=== PATIENT | female | born 1965 | race Caucasian/White ===

== ENCOUNTER 2019-10-31 06:43 | Day surgery (SDC) | payer MEDICARE, SELFPAY ==
[2019-10-30 09:27] VITALS: BMI 32.3
--- NOTE | 2019-10-31 07:02 | ANES.PREANES ---
Pre-Anesthetic Assessment Pre-Anesthetic Assessment: Height/Weight: Height 1.68 m Weight 90.718 kg Preop Diagnosis: screening Proposed Procedure: Operation Date: 10/31/19 07:30 Proposed Procedures p Colonoscopy(Not Applicable) - Trino Mane MD Was Beta Raul taken within 24 hours: N/A Last Intake: 20:00 Social: Social History: No tobacco Packs per day: 1 Pack years: 30 Exam: Pre-Anes Outpt Exam: alert, oriented x 3, clear to auscultation bilaterally and regular rate & rhythm Airway: Submandibular: WNL Cervical ROM: WNL MP: 1 Dentition: False Pulmonary: Pulmonary: COPD and MONTEJO CV/HEM: CV/HEM: DVT (2017) and HTN : : None reported Hepatic: Hepatic: None reported GI: GI: None reported Metabolic: Metabolic: None reported Musc/skel: Musc/skel: Lower Back Pain and OA/DJD Neuropsych: Neuropsych: Anxiety Anesthetic Plan: ASA status: III Anesthesia: Anesthesia Evaluation and MAC Risk of > 500 ml blood loss (7ml/kg in children): No PFSH Anesthesia PFSH: Social History (Updated 10/30/19 @ 10:08 by Celia Vu RN) Smoking and tobacco status: current every day smoker Alcohol intake: current Alcohol intake frequency: 3 or more drinks per day Substance/Drug Use: current Substance/Drug use frequency: few times a month Substance/Drug use type: Marijuana Data Anesthesia Cardiac Studies: No Data to Display
[2019-10-31 07:04] VITALS: BP 135/89; PULSE 82; RESP 18; TEMP 36.2; O2SAT 98
--- NOTE | 2019-10-31 07:04 | PM.HP ---
Providers/Chief Complaint Primary Care Provider: Mary Carmen Salazar APRN Chief Complaint: screening colonoscopse History of Present Illness Chief complaint ; Screening colonoscopy HPI Amber Ventura is a 53 year old female referred to me for screening by patient's primary care provider Review of Systems Const: Reports: body aches; Denies: fever, chills, change in weight, fatigue or malaise Card: Denies: chest pain, palpitations, lightheadedness or shortness of breath on exertion Resp: Denies: shortness of breath or wheezing GI: Denies: abdominal pain, nausea, vomiting, vomiting blood, diarrhea, constipation, bloating, blood in stool or black tarry stool : Denies: difficulty urinating Musc: Denies: back pain Skin/Breast: Reports: skin tenderness Neuro: Denies: frequent falls Psych: Denies: anxiety or depression Endo: Denies: excessive urination Medications/Allergies Home Medications Medication Instructions Recorded Confirmed Last Taken Type amlodipine 5 mg PO DAILY 10/30/19 10/30/19 10/30/19 History ibuprofen [IBU] 800 mg PO Q6H PRN 10/30/19 10/30/19 10/30/19 History lisinopril 20 mg PO DAILY 10/30/19 10/30/19 10/30/19 History Allergies Allergy/AdvReac Type Severity Reaction Status Date / Time codeine Allergy ALGY-Rash Verified 10/30/19 10:05 PFSH Acute PFSH: Statuses (acute, chronic, etc) shown below reflect problem list status as previously entered and may not be historically accurate Medical History (Updated 10/31/19 @ 07:08 by Trino Mane MD) Encounter for screening colonoscopy (Acute) Social History Smoking and tobacco status: current every day smoker Alcohol intake: current Alcohol intake frequency: 3 or more drinks per day Substance/Drug Use: current Substance/Drug use frequency: few times a month Substance/Drug use type: Marijuana Vitals/I&O/Wt Weight last 48 hrs Weight 200 lb Weight 200 lb Physical Exam Const: COMMON NORMALS: no apparent distress and oriented x3 GENERAL APPEARANCE: cooperative ORIENTATION/CONSCIOUSNESS: Yes awake, Yes oriented to person, Yes oriented to place and Yes oriented to time HENMT: COMMON NORMALS: normocephalic HEAD & SCALP: normocephalic Eye: COMMON NORMALS: PERRL and no scleral icterus PUPIL: Yes PERRL Chest: COMMONS NORMALS: inspection of chest normal Resp: COMMON NORMALS: normal respiratory effort and clear to auscultation bilaterally AUSCULTATION: clear to auscultation bilaterally Cardio: COMMON NORMALS: S1 normal heart sound and S2 normal heart sound; negative for no murmurs HEART SOUNDS: S1 normal and S2 normal GI: COMMON NORMALS: soft to palpation; negative for no hepatosplenomegaly INSPECTION: Yes normal to inspection PALPATION: Yes soft, No firm, No tender, No guarding, No rigid and No no hepatosplenomegaly Neuro: COMMON NORMALS: oriented x3 SENSORIUM/ORIENTATION: Yes oriented to person, Yes oriented to place and Yes oriented to time Psych: COMMON NORMALS: mental status grossly normal A&P Assessment and plan (1) Encounter for screening colonoscopy: Plan of care; After thorough history and physical examination and reviewing the chart, plan to perform screening colonoscopy in the GI lab... All questions have been answered and all concerns have been addressed to patient's satisfaction. Informed consent per chart were,Indications, risks, benefits, and alternatives were all discussed with the patient and did agree to proceed. Verbal and written Instructions were given to the patient for colonoscopy prep Status: Acute Code(s): Z12.11 - Encounter for screening for malignant neoplasm of colon Attestations Medical Necessity Statement*: outpatient Coding Level of Care Code Acute Medical Equipment Repairer for Rani Fwd Exam Problem Focused Diagnoses Encounter for screening colonoscopy Z12.11
[2019-10-31] MEDS: sodium chloride 0.9% 1,000 ML 30 ML (07:24)
[2019-10-31 08:22] VITALS: BP 107/81; PULSE 73; RESP 16; TEMP 36.6; O2SAT 94
--- NOTE | 2019-10-31 08:24 | ANE.PACU ---
 Inpatient post-anesthesia follow up: Airway intact: Yes Vital signs: Temperature 97.8 F Pulse Rate [Apical ] 73 Respiratory Rate 16 Blood Pressure [Le ft Arm] 107/81 Pulse Oximetry 94 Oxygen Delivery Me thod Room Air Oxygen Flow Rate Fraction of Inspir ed Oxygen Hydration adequate: Yes Nausea and vomiting: No Pain level: 2 Mental status: Baseline
[2019-10-31 08:34] VITALS: BP 103/75; PULSE 75; RESP 18; O2SAT 100
== END 2019-10-31 08:53 | disposition home or self-care (01) ==
PROVIDERS: PCP Nurse Practitioner Family; Visit Provider Surgery
PROC: 0DJD8ZZ Inspection of Lower Intestinal Tract, Via Natural or Artificial Opening Endoscopic (ICD-10-PCS; CPT 45378; principal; 2019-10-31 07:30)
DX: Z12.11 Encounter for screening for malignant neoplasm of colon (principal); K57.30 Diverticulosis of large intestine without perforation or abscess without bleeding; F17.210 Nicotine dependence, cigarettes, uncomplicated; Z86.718 Personal history of other venous thrombosis and embolism; I10 Essential (primary) hypertension; F41.9 Anxiety disorder, unspecified
CPT/HCPCS: 45378; G0121; J2704; J7030

== ENCOUNTER 2019-11-21 08:12 | Emergency (ER) | payer MEDICARE, SELFPAY ==
[2019-11-21 08:22] VITALS: BP 163/107; PULSE 80; RESP 16; TEMP 36.4; O2SAT 99; BMI 32.1
--- NOTE | 2019-11-21 08:28 | ED_ITS ---
Entered by Beto Rodriguez, acting as scribe for HPI - General Adult General: Chief complaint: Back Pain/Injury Stated complaint: Fall back pain Time Seen by Provider: 11/21/19 08:13 History of Present Illness: HPI narrative: 54 yo female presents with fall and back pain. Pt states that she fell out of the bathtub on tuesday. Pt states that she has been taking flexuril and ibuprofen. Pt states that she has been using icy hot and it hasn't helped. Pt states that she hasn't had any relief. Pt denies hitting head or LOC. MD complaint: back pain/fall Associated symptoms: Deny chest pain, dyspnea, malaise, nausea, rash or vomiting Review of Systems Const: Denies: fever, chills, body aches, change in appetite, fatigue or malaise ENMT: Denies: throat pain, ear pain, nasal discharge or nasal congestion Card: Denies: chest pain, edema, shortness of breath on exertion or shortness of breath when lying down Resp: Denies: shortness of breath, productive cough or non-productive cough GI: Denies: abdominal pain, nausea, vomiting, vomiting blood, coffee grounds in vomit, diarrhea, constipation, bloating, blood in stool or black tarry stool : Denies: flank pain, difficulty urinating, painful urination, urinary frequency or urinary urgency Musc: Reports: back pain (low back) Skin/Breast: Denies: rash or itching PFSH ED PFSH: Statuses (acute, chronic, etc) shown below reflect problem list status as previously entered and may not be historically accurate Medical History Diverticulosis large intestine w/o perforation or abscess w/bleeding (Acute) Social History Smoking and tobacco status: current every day smoker Alcohol intake: current Alcohol intake frequency: 3 or more drinks per day Physical Exam Const: COMMON NORMALS: no apparent distress GENERAL APPEARANCE: cooperative and comfortable ORIENTATION/CONSCIOUSNESS: Yes awake, Yes oriented to person, Yes oriented to place and Yes oriented to time HENMT: COMMON NORMALS: normocephalic, head/scalp atraumatic, hearing grossly normal bilaterally, external ears normal, EAC's normal, TM's normal bilaterally, nasal mucous membranes and turbinates normal, moist oral mucous membranes and oropharynx normal HEAD & SCALP: normocephalic and atraumatic NOSE: nasal mucous membranes and turbinates normal EXTERNAL EAR: Yes external ears normal EXTERNAL AUDITORY CANAL: EAC's normal TYMPANIC MEMBRANE: TM's normal bilaterally Eye: COMMON NORMALS: PERRL, EOMs intact bilaterally, conjunctivae normal and no scleral icterus CONJUNCTIVA: Yes conjunctivae normal PUPIL: Yes PERRL Neck/C-Spine: COMMON NORMALS: full ROM, no lymphadenopathy, supple and no JVD Lymph: LYMPHATIC: no lymphadenopathy noted and no lymphedema noted Resp: COMMON NORMALS: normal respiratory effort, no retractions, no use of accessory muscles and clear to auscultation bilaterally AUSCULTATION: clear to auscultation bilaterally Cardio: COMMON NORMALS: no JVD, regular rate, regular rhythm and no murmurs RATE: regular rate RHYTHM: regular rhythm GI: COMMON NORMALS: soft to palpation and no hepatosplenomegaly AUSCULTATION: Yes normoactive bowel sounds PALPATION: Yes soft, No tender, No guarding and Yes no hepatosplenomegaly Back/Pelvis: GENERAL BACK: Yes tenderness (low back) THORACIC SPINE/UPPER BACK: Yes pain with ROM Extremity: COMMON NORMALS: normal to inspection, normal capillary refill, no clubbing, cyanosis or edema, no calf tenderness and no pedal edema Neuro: SENSORIUM/ORIENTATION: Yes oriented to person, Yes oriented to place and Yes oriented to time Skin: COMMON NORMALS: no rashes or lesions noted GENERAL SKIN EXAM: no guevara hes or lesions noted Course ED course: musculoskeletal back pain wiht no trauma. TReat conservatively. Vital Signs: Vital signs: Vital Signs Temperature 97.6 F 11/21/19 08:22 Pulse Rate 67 11/21/19 10:55 Respiratory Rate 16 11/21/19 10:55 Blood Pressure 144/97 11/21/19 10:55 Pulse Oximetry 98 11/21/19 10:55 Discharge Plan Discharge Patient Disposition: Home, Self-Care Clinical Impression: Strain of lumbar region Condition: Stable Prescriptions: New diclofenac sodium 75 mg tablet,delayed release (DR/EC) 75 mg PO Q12H PRN (Reason: pain) Qty: 30 RF: 0 cyclobenzaprine 5 mg tablet 10 mg PO TID PRN (Reason: muscle spasm) Qty: 20 RF: 0 Held ibuprofen 200 mg Tablet 1,000 mg PO TID PRN (Reason: Pain) RF: 0 Hold Instructions: Resume on 11/30/19. hold while on diclofenec cyclobenzaprine 5 mg tablet 5 mg PO TID PRN (Reason: Spasms) RF: 0 Hold Instructions: Resume on 11/28/19. hold while on the increased dose of 10mg q 8 hrs as needed No Action lisinopril 20 mg tablet 20 mg PO DAILY RF: 0 amlodipine 5 mg tablet 5 mg PO DAILY RF: 0 Multiple Vitamins Tablet 1 tab PO DAILY PRN (Reason: unknown) RF: 0 Discharge Orders: Discharge Order (Routine); Ordered 11/21/19 Ordered By: Francisco Javier De La Paz Referrals: Mary Carmen Salazar APRN [Primary Care Provider] - Discharge Date/Time: 11/21/19 10:56 Coding Level of Care Code ED Non Cdl Driver for Chg Fwd Exam Problem Focused The documentation recorded by the Michael gould Kialy, accurately reflects the service I personally performed and the decisions made by Ana Cristina palmer Curtis L, DO Nov 21, 2019 08:12
--- NOTE | 2019-11-21 08:39 | XRR_ITS ---
PROCEDURE INFORMATION: Exam: XR Lumbosacral Spine, 2 or 3 Views Exam date and time: 11/21/2019 9:10 AM Age: 54 years old Clinical indication: Injury or trauma; Initial encounter; Blunt trauma (contusions or hematomas); Injury date: 11/21/19; Injury details: Fall, PT can't stand or lay down; Additional info: Trauma with bruising TECHNIQUE: Imaging protocol: XR of the lumbosacral spine, 2 or 3 views. COMPARISON: No relevant prior studies available. FINDINGS: Vertebrae: Severe diffuse degenerative disc disease reflected as severe decrease in disc space height and anterior endplate osteophytosis. No spondylolisthesis No pars defect. No fracture. Multi-level facet hypertrophic changes- Soft tissues: Normal. XR/XR lumbar spine 2-3V* [id number] IMPRESSION: Severe diffuse degenerative disc disease.
[2019-11-21] MEDS: ketorolac 60 mg/2 mL INJ IM (09:26)
[2019-11-21] MEDS: orphenadrine 30 mg/mL Inj 2 mL 60 MG IM (09:26)
[2019-11-21 10:55] VITALS: BP 144/97; PULSE 67; RESP 16; O2SAT 98
== END 2019-11-21 10:56 | disposition home or self-care (01) ==
PROVIDERS: Emergency Provider Family Medicine; PCP Nurse Practitioner Family
DX: S39.012A Strain of muscle, fascia and tendon of lower back, initial encounter (principal); F17.210 Nicotine dependence, cigarettes, uncomplicated; W18.2XXA Fall in (into) shower or empty bathtub, initial encounter
CPT/HCPCS: 72100; 96372; 99281; 99283; J1885; J2360

== ENCOUNTER 2020-02-07 10:51 | Outpatient (CLI) | payer MEDICARE, SELFPAY ==
--- NOTE | 2020-02-07 11:05 | XR_ITS ---
WS: [id number] HIPS BILATERAL TECHNIQUE: 5 views bilateral hips Including pelvis CLINICAL INFORMATION: OSTEOARTHRITIS OF HIPS COMPARISON: None. FINDINGS: Advanced degenerative arthritis right hip with [id number]-gg-onta articulation and flattening of the femora l head. Sclerosis in the femoral head consistent with avascular necrosis. Normal left hip. XR/XR hip BI 3-4V wo/[place] [id number] IMPRESSION: Advanced osteoarthritis right hip with [id number] articulation and flattening of the femoral head consistent with avascular necrosis and advanced degenerati ve changes
== END 2020-02-07 10:52 | disposition home or self-care (01) ==
LOC: RADWPI 10:57
PROVIDERS: PCP Nurse Practitioner Family; Visit Provider Nurse Practitioner Family
DX: M16.11 Unilateral primary osteoarthritis, right hip (principal)
CPT/HCPCS: 73522

== ENCOUNTER → 2020-02-19 09:03 | Outpatient (BNVA) | payer MEDICARE, SELFPAY | PROVIDERS: PCP Nurse Practitioner Family; Referring Provider Nurse Practitioner Family; Visit Provider Specialist | DX: M25.551 Pain in right hip; M16.11 Unilateral primary osteoarthritis, right hip | CPT/HCPCS: 73502 ==

== ENCOUNTER 2020-03-11 10:24 | Observation (INO) | payer MEDICARE, SELFPAY ==
[2020-03-06 12:25] VITALS: BMI 31.9
[2020-03-06 14:20] LABS: Add Urine Microscopic? NO
[2020-03-06 14:29] LABS: Urine Appearance Clear (CLEAR); Urine Color Yellow (Yellow); pH Urine 5 (5-7)
[2020-03-06 14:30] LABS: Bilirubin Urine Neg (NEGATIVE); Blood Urine Neg (Negative); Glucose Urine UA Norm (Normal); Ketones Urine 2+ (Negative); Leukocyte Esterase Urine Negative (Negative); Nitrate Urine Negative (Negative); Protein Urine Neg (Negative); Specific Gravity, Urine 1.015 (1.005-1.030); Urobilinogen Urine Norm (Negative)
[2020-03-06 14:33] LABS: Basophils % 0.6 %; Eosinophils # 0.1 10^3/uL (0.0-0.8); Eosinophils % 1.3 %; Hematocrit 43.6 % (37.0-47.0); Hemoglobin 14.6 g/dL (11.5-15.3); Lymphocytes # 1.4 10^3/uL (0.8-4.8); Lymphocytes % 29.9 %; Mean Corpuscular HGB Conc 33.5 g/dL (30.0-36.0); Mean Corpuscular Hemoglobin 32.4 pg (28.0-34.0); Mean Corpuscular Volume 96.7 fL (81-99); Mean Platelet Volume 9.4 fL (7.4-10.4); Monocytes # 0.6 10^3/uL (0.2-0.9); Monocytes % 12.1 %; Neutrophils # 2.7 10^3/uL (1.8-7.7); Neutrophils % 56.1 %; Nucleated Red Blood Cells % 0 %; Platelet Count 193 10^3/cmm (130-400); Red Blood Count 4.51 10^6/uL (4.1-5.3); White Blood Count 4.8 10^3/uL (4.0-10.0)
--- NOTE | 2020-03-06 14:37 | XR_ITS ---
WS: [id number] CHEST 2 VIEWS HISTORY: RIGHT TOTAL HIP COMPARISON: None available. Lungs: Mild pulmonary hyperinflation. Very subtle linear atelectasis at the LEFT costophrenic angle. No pneumonia. Mild flattening of the diaphragms. Cardiac size: Normal. Mediastinum/Aorta: Mild atherosclerosis aorta. Bones: Mild bilateral AC joint arthritis. Mild thoracic spondylosis. XR/XR chest 2V* [id number] IMPRESSION: Mild emphysema with no pneumonia.
--- NOTE | 2020-03-06 14:37 | ECG_ITS ---
Measurements Intervals [place] Rate: 83 P: 27 VT: 151 QRS: 24 QRSD: 95 T: 43 QT: 349 QTc: 411 SINUS RHYTHM No previous ECG available for comparison Electronically Signed On 03-07-2020 13:01:10 CDT by Kory Bustos M.D. [email or web address]
[2020-03-06 14:56] LABS: INR 0.95 (0.8-1.2)
[2020-03-06 14:57] LABS: Partial Thromboplastin Time 24.7 SECONDS (23.9-36.7)
[2020-03-06 15:03] LABS: Alanine Aminotransferase 16 U/L (0-33); Albumin Level 4.3 g/dL (3.5-5.2); Alkaline Phosphatase 124 IU/L (35-105); Anion Gap 20.5 (5-19); Aspartate Amino Transferase 20 U/L (0-32); Blood Urea Nitrogen 11 mg/dL (6-20); Carbon Dioxide 22 mmol/L (22-29); Chloride 100 mmol/L (98-107); Glomerular Filtration Rate 127.6 mL/min (90-130); Glucose 95 mg/dL (65-115); Osmolality Calculated 284 mOsm/kg (285-295); Potassium 3.5 mmol/L (3.5-5.1); Sodium 139 mmol/L (136-145); Total Bilirubin 0.6 mg/dL (0.15-1.2); Total Protein 7.3 g/dL (6.6-8.7)
--- NOTE | 2020-03-06 17:02 | ANES.PREANE2 ---
Pre-Anesthetic Assessment Pre-Anesthetic Assessment: Height/Weight: Height 1.7 m Weight 92.533 kg Preop Diagnosis: screening Proposed Procedure: Operation Date: 03/11/20 07:00 Proposed Procedures p Right [place] arthor[place]. [id number] Primary osteoarthritis M16.11(Right) - Jocelin Wood MD Social: Social History: Alcohol and Tobacco Exam: Pre-Anes Outpt Exam: alert, oriented x 3, clear to auscultation bilaterally and regular rate & rhythm Airway: Submandibular: WNL Cervical ROM: WNL MP: 2 Dentition: False (upper and lower) History/ROS: No significant history except as noted Pulmonary: Pulmonary: COPD and MONTEJO CV/HEM: CV/HEM: HTN : : None reported Hepatic: Hepatic: None reported GI: GI: GERD (occ) Metabolic: Metabolic: None reported Musc/skel: Musc/skel: OA/DJD Neuropsych: Neuropsych: None reported Anesthetic Plan: ASA status: 3 Anesthesia: Anesthesia Evaluation and General Risk of > 500 ml blood loss (7ml/kg in children): Yes, adequate IV access and fluids planned PFSH Anesthesia PFSH: Medical History (Updated 02/19/20 @ 14:46 by Jocelin Wood MD) Avascular necrosis of bone Diverticulosis large intestine w/o perforation or abscess w/bleeding HTN (hypertension) Hx of deep venous thrombosis Social History Smoking and tobacco status: current every day smoker Alcohol intake: current Alcohol intake frequency: 3 or more drinks per day Data Anesthesia CBC & Chem 7: 03/06/20 14:00 03/06/20 14:00 Other Labs: Laboratory Results - last 48 hr 03/06/20 03/06/20 03/06/20 14:00 14:00 14:00 WBC 4.8 RBC 4.51 Hgb 14.6 Hct 43.6 MCV 96.7 MCH 32.4 MCHC 33.5 RDW 13.0 Plt Count 193 MPV 9.4 Neut % (Auto) 56.1 Lymph % (Auto) 29.9 [place] % (Auto) 12.1 Eos % (Auto) 1.3 Baso % (Auto) 0.6 Neut # (Auto) 2.7 Lymph # (Auto) 1.4 [place] # (Auto) 0.6 Eos # (Auto) 0.1 Baso # (Auto) 0.0 Nucleated RBC % (auto) 0 Nucleated RBCs # 0.0 PT 12.90 INR 0.95 APTT 24.7 Sodium Potassium Chloride Carbon Dioxide Anion Gap BUN Creatinine GFR Calculation Glucose Calculated Osmolality Calcium Total Bilirubin AST ALT Alkaline Phosphatase Total Protein Albumin Globulin Urine Color Yellow Urine Appearance Clear Urine pH 5 Ur Specific [place] 1.015 Urine Protein Neg Urine Glucose (UA) Norm Urine Ketones 2+ H Urine Blood Neg Urine Nitrate Negative Urine Bilirubin Neg Urine Urobilinogen Norm Ur Leukocyte Esterase Negative 03/06/20 14:00 WBC RBC Hgb Hct MCV MCH MCHC RDW Plt Count MPV Neut % (Auto) Lymph % (Auto) [place] % (Auto) Eos % (Auto) Baso % (Auto) Neut # (Auto) Lymph # (Auto) [place] # (Auto) Eos # (Auto) Baso # (Auto) Nucleated RBC % (auto) Nucleated RBCs # PT INR APTT Sodium 139 Potassium 3.5 Chloride 100 Carbon Dioxide 22 Anion Gap 20.5 H BUN 11 Creatinine 0.5 GFR Calculation 127.6 Glucose 95 Calculated Osmolality 284 L Calcium 10.0 Total Bilirubin 0.6 AST 20 ALT 16 Alkaline Phosphatase 124 H Total Protein 7.3 Albumin 4.3 Globulin 3.0 Urine Color Urine Appearance Urine pH Ur Specific [place] Urine Protein Urine Glucose (UA) Urine Ketones Urine Blood Urine Nitrate Urine Bilirubin Urine Urobilinogen Ur Leukocyte Esterase Micro: Microbiology 03/06/20 14:00 MRSA Culture - Final Nose Cardiac Studies: No Data to Display
[2020-03-11] VITALS (16 sets, daily range): BP systolic 111–147; BP diastolic 72–96; PULSE 76–100; RESP 14–20; TEMP 36.1–37.2; O2SAT 94–98
[2020-03-11] MEDS: sodium chloride 0.9% 1,000 ML 30 ML IV (06:34)
--- NOTE | 2020-03-11 06:43 | P.ANESUD_ITS ---
Pre-Anesthetic Update Pre-Anesthetic Assessment: Date of Surgery/Procedure: 03/11/20 Preop Tiffanie gnosis: screening Proposed Procedure: Operation Date: 03/11/20 07:00 Proposed Procedures p Right Total hip arthorplasty. [id number] Primary osteoarthritis M16.11(Right) - Jocelin Wood MD Any changes to Pre-Anesthetic Assessment?: No Last Intake: Intake Last Liquid Date 03/11/20 Last Liquid Time 05:00 Last Solid Date 03/10/20 Last Solid Time 19:00 Vitals: Temperature 97 F L 03/11/20 06:19 Pulse Rate 97 03/11/20 06:19 Respiratory Rate 16 03/11/20 06:19 Blood Pressure 142/96 03/11/20 06:19 Blood Pressure Anuja n 111 03/11/20 06:19 Pulse Oximetry 97 03/11/20 06:19 Oxygen Delivery Me thod 03/11/20 06:08 Exam: Pre-Anes Outpt Exam: alert, oriented x 3, clear to auscultation bilaterally and regular rate & rhythm Cardiac Studies: No Data to Display
--- NOTE | 2020-03-11 07:05 | W.PM.OPSUD ---
Surgery/Procedure H&P Update DATE OF PROCEDURE: March 11, 2020 DATE H&P PERFORMED: 02/19/20 H&P UPDATE INFORMATION: I have reviewed H&P completed within last 30 days, I have examined patient prior to procedure and H[place] [facility] date indicated PREOP DIAGNOSIS: Right Hip Degenerative Arthritis PLANNED PROCEDURE: Operation Date: 03/11/20 07:00 Proposed Procedures p Right Total hip arthorplasty. [id number] Primary osteoarthritis M16.11(Right) - Jocelin Wood MD
[2020-03-11] MEDS: vancomycin 1,000 MG SDV 1000 MG XX (08:47)
[2020-03-11] MEDS: ceFAZolin 1,000 mg SDV 1000 MG IRRIGATION (08:47)
--- NOTE | 2020-03-11 10:04 | P.OP_ITS ---
Operative Report Date of procedure: March 11, 2020 Pre-op Diagnosis: Right hip osteoarthritis Post-op diagnosis: same Post-op Findings: Multiple osteophytes and significant head deformity Procedure Done: Right total hip arthroplasty utilizing the following components: The [employer] Accolade II total hip system with a Trident Tritanium acetabulum. Implants: Trident II Tritanium solid back acetabular shell size 54 mm by E alpha code with an MDM cementless liner inner diameter 42 mm by E alpha code. A size 7 Accolade II femoral stem with a 127 degree neck angle with a size 28 mm outer diameter by +4 mm femoral offset, ceramic V40 and an MDM insert size 28 mm inner diameter by size 42E Specimens removed/disposition: Femoral head, disposed of Pathology: none sent Surgeon: Jocelin Wood Retail Loan Originator: [facility] OR technicians Anesthesia: General (Intubated, ASA 3) Estimated blood loss (mL): 600 IV fluids (mL): 1,500 Urine output (mL): 200 Complications: None Findings: Postimplantation, the hip was stable at 90 degrees of flexion with 60 degrees of internal rotation and 20 degrees of adduction. It was also stable to toe hang. Leg lengths appear to be restored. Condition: stable Disposition: PACU (Then to floor.) Brief History: This 54-year-old woman presented with complaints of severe right hip pain interfering with her activities of daily living. At the time of her surgery, she was also having issues in her left lower extremity likely due to significant problems with gait. She has had pain for 3 years but it has been worsening recently. Procedure: Patient was brought to the operating theater. He was transferred to the operating room table and subsequently administered a general anesthetic intubated. Following administration of adequate anesthesia, the patient was placed in full lateral position and held in position with a pegboard. Also, the patient had minimal movement in her right lower extremity preoperatively. The patient's right lower extremity was then prepped and draped in usual fashion utilizing DuraPrep. It was draped free. Following prepping and draping a surgical pause was performed. At the time of surgical pause, we identified the site and side of surgery. We also identified the patient and preoperative surgical markings. Confirmation was made of equipment availability. Additionally, the patient's preoperative IV antibiotic, Ancef 2 g, as well as TXA, was confirmed as being given in a timely fashion and being the appropriate. Following the surgical pause, an incision was made centering over the patient's greater trochanter continuing proximally and distally as necessary to allow access to the hip joint. Dissection continued through skin and soft tissues using a scalpel, and hemostasis was obtained using electrocautery. The tensor fascia colleen was identified and incised longitudinally. Sciatic nerve was identified and protected throughout the surgical procedure. A Charnley U retractor was placed after the tensor fascia colleen had been incised longitudinally, and the sciatic nerve had been identified. The hip was internally rotated, and the piriformis muscle was identified and tagged. Piriformis muscle along with the remaining short external rotators were then incised from the posterior aspect of the hip joint. These were retracted posteriorly. The capsule was entered in a T-type fashion with the edges being tagged. There were noted to be significant osteophytes circumferentially about the acetabulum. This precluded initial dislocation of the hip. These were removed with an osteotome. Following removal, the hip was dislocated Following hip dislocation, a femoral neck osteotomy was accomplished in the appropriate position. Actually, neck resection was noted to be quite low in spite of the patient having a relatively long femoral neck. This was secondary to the fact that the femoral head was severely malformed with large osteophytes along the neck as well. Resection was accomplished as high as possible secondary to the osteophytes. We then evaluated the acetabulum. The femur was retracted anteriorly. Soft tissues were retracted and the labrum was removed. We then began reaming. As noted, there were significant osteophytes, and these were removed as they were better defined. Reaming was accomplished sequentially. We reamed to a size 53 to allow for a size 54 acetabular shell. The acetabulum was impacted into position. Screw holes were filled in the cup as well as the dome hole with the appropriate metal plugs. Also, we confirmed that the acetabular insert was completely seated prior to addressing the femur. After the acetabulum was in appropriate position, we placed the MDM liner without difficulty. There were osteophytes which were better defined once the acetabulum was impacted both anteriorly and posteriorly which were removed as well. The cup was noted to seat nicely and had good fixation upon impact. Attention was directed to the proximal femur. The proximal femur was lifted out of the wound. A canal finder was passed after the box chisel. The reamer was used to lateralize. We then began broaching. We broached sequentially and had excellent fit and fill with the size 7 Accolade II 127 degree neck angle stem. A trial reduction was accomplished with a +0 mm femoral head inside the appropriate MDM insert. We then performed trial reduction with a +4 mm femoral head. The patient had better stability with the +4 mm femoral head and it was not felt that we had increased her leg length. With this in place, we had the above stabilities, and at that time, we felt that we had restored leg lengths. We also felt that we had excellent stability noted above. Therefore, trial components were removed after the hip was dislocated. The size and Accolade II 127 degree neck angle hip stem was impacted into position without difficulty and onto this was placed a 4 mm offset femoral head with the appropriate MDM liner. The hip was then reduced without difficulty. With this construct, we had the above-noted stability. The stem was noted to seat nicely prior to placement of the femoral head. The wound was copiously irrigated with 20 mL of Betadine and 500 mL of normal saline mixed together. Subsequently, we suctioned this out and irrigated the wound copiously with lactated Ringer's. Following reduction of the prosthesis once again, we confirmed the stability of the hip. Leg lengths were also felt to be satisfactory. Being satisfied with the prosthesis, attention was directed to closure. Closure was accomplished with 0 Vicryl in the capsular tissues. Piriformis was reattached with 0 Vicryl as well. Tensor fascia colleen was closed with 0 Vicryl in an interrupted fashion. The subcutaneous tissues were closed the combination of 0 Vicryl and 2-0 Monocryl. Vancomycin powder and a Gelfoam thrombin mixture was placed into the wound as well. The skin was closed with a running 3-0 Monocryl followed by Exofin and Steri-Strips. This was covered with Telfa and Tegaderm. The patient was placed in an abduction pillow. She was returned the Recovery Room in a satisfactory condition and will be discharged to the floor for postoperative rehabilitation and pain management. There were no compli cations.
--- NOTE | 2020-03-11 10:05 | XR_ITS ---
WS: [id number] PELVIS TECHNIQUE: 1 view(s) of the pelvis CLINICAL INFORMATION: Status post right total hip arthroplasty COMPARISON: None. FINDINGS: Right LEVON appears in good position. Postoperative soft tissue edema. Moderate to advanced degenerativ e arthritis left hip joint space narrowing. IMPRESSION: Satisfactory early postoperative changes right LEVON.
[2020-03-11] MEDS: chlorhexidine gluconate 0.12% Btl 473 mL 30 ML MUCOUS MEM ×3 (13:09→21:57)
[2020-03-11] MEDS: TRAMadol 50 mg Tablet PO (13:41)
[2020-03-11] MEDS: sodium chloride 0.9% 1,000 ML 100 ML IV ×2 (14:29→21:57)
[2020-03-11] MEDS: sennosides-docusate Tablet 2 TAB PO (16:44)
[2020-03-11] MEDS: acetaminophen 500 mg Tablet 1000 MG PO (16:45)
[2020-03-11] MEDS: CELEcoxib 200 mg Capsule PO (16:45)
[2020-03-11] MEDS: iron polysaccharide complex 150 mg Capsule PO (16:45)
[2020-03-11] MEDS: calcium carbonate 500 mg Chew Tablet 1000 MG PO (16:45)
--- NOTE | 2020-03-11 18:06 | NUR.SHIFT ---
SHIFT SUMMARY PATIENT HAS DONE WELL SINCE ARRIVAL. VITALS GOOD. GOOD NEUROVASCULAR CHECKS. BILATERAL TEDS AND FOOT PUMPS IN PLACE. PAIN WELL CONTROLLED. DRESSING C/D/I. 1000ML OF URINE OUTPUT. DID WELL WITH PHYSICAL THERAPY.
[2020-03-11] MEDS: TRAMadol 50 mg Tablet 100 MG PO (21:59)
[2020-03-12] VITALS: BP 123/73; PULSE 84; RESP 20; TEMP 37; O2SAT 94
[2020-03-12] MEDS: acetaminophen 500 mg Tablet 1000 MG PO ×2 (02:51→10:18)
[2020-03-12 04:00] VITALS: BP 132/85; PULSE 89; RESP 20; TEMP 36.8; O2SAT 95
[2020-03-12] MEDS: CELEcoxib 200 mg Capsule PO (06:30)
[2020-03-12 06:36] LABS: Basophils % 0.3 %; Hematocrit 35.5 % (37.0-47.0); Hemoglobin 11.8 g/dL (11.5-15.3); Lymphocytes # 1.3 10^3/uL (0.8-4.8); Lymphocytes % 12.3 %; Mean Corpuscular HGB Conc 33.2 g/dL (30.0-36.0); Mean Corpuscular Hemoglobin 32.6 pg (28.0-34.0); Mean Corpuscular Volume 98.1 fL (81-99); Mean Platelet Volume 9.5 fL (7.4-10.4); Monocytes # 0.8 10^3/uL (0.2-0.9); Neutrophils # 8.3 10^3/uL (1.8-7.7); Neutrophils % 78.9 %; Nucleated Red Blood Cells % 0 %; Platelet Count 183 10^3/cmm (130-400); Red Blood Count 3.62 10^6/uL (4.1-5.3); Red Cell Distribution Width 13.2 % (12.1-15.1); White Blood Count 10.5 10^3/uL (4.0-10.0)
[2020-03-12 06:57] LABS: Anion Gap 15.3 (5-19); Blood Urea Nitrogen 8 mg/dL (6-20); Calcium 8.3 mg/dL (8.5-10.5); Carbon Dioxide 21 mmol/L (22-29); Chloride 109 mmol/L (98-107); Glomerular Filtration Rate 165.1 mL/min (90-130); Glucose 116 mg/dL (65-115); Osmolality Calculated 291 mOsm/kg (285-295); Potassium 3.3 mmol/L (3.5-5.1); Sodium 142 mmol/L (136-145)
[2020-03-12 07:20] VITALS: BP 137/80; PULSE 80; RESP 18; TEMP 37.3; O2SAT 95
[2020-03-12] MEDS: cholecalciferol (vitamin D3) 1,000 unit Tablet 1000 UNIT PO (07:31)
[2020-03-12] MEDS: aspirin 325 mg EC Tablet PO (07:31)
[2020-03-12] MEDS: calcium carbonate 500 mg Chew Tablet 1000 MG PO (07:31)
[2020-03-12] MEDS: iron polysaccharide complex 150 mg Capsule PO (07:32)
[2020-03-12] MEDS: sennosides-docusate Tablet 2 TAB PO (07:32)
[2020-03-12] MEDS: lisinopril 20 mg Tablet PO (07:32)
[2020-03-12] MEDS: amlodipine 5 mg Tablet PO (07:32)
[2020-03-12] MEDS: multivitamin therapeutic Tablet 1 TAB PO (07:32)
[2020-03-12] MEDS: chlorhexidine gluconate 0.12% Btl 473 mL 30 ML MUCOUS MEM (07:33)
[2020-03-12] MEDS: TRAMadol 50 mg Tablet PO ×2 (07:33→15:14)
--- NOTE | 2020-03-12 09:35 | P.PN_ITS ---
Vitals/I&O/Wt Last Vital Signs Temp 99.1 F 03/12/20 07:20 Pulse 80 03/12/20 07:20 Resp 18 03/12/20 07:20 BP 137/80 03/12/20 07:20 Pulse Ox 95 03/12/20 07:20 03/11/20 03/12/20 03/12/20 22:59 06:59 14:59 Intake Total 290 / 2350 240 / 2590 240 / 240 Output Total 1000 / 1999 100 / 2100 Balance -710 / 350 140 / 490 240 / 240 Physical Exam Urinary Catheter Management^: F: Cath Placed During This Visit: yes, but has since been removed by the nurse Reason for Continuing Indwelling Catheter: Not indwelling catheter Urinary Catheter Date of Insertion: 03/11/20 Urinary Catheter Time of Insertion: 07:35 Date Urinary Catheter Removed: 03/12/20 Time Urinary Catheter Discontinued: 06:00 Data : 03/12/20 06:10 03/12/20 06:10 A&P Assessment and plan (1) History of total right hip arthroplasty: Status: Acute (2) Primary localized osteoarthritis of right hip: Status: Acute Coding Level of Care Code Acute Waste Transportation Technician for Rani Wells Diagnoses History of total right hip arthroplasty Z96.641 Primary localized osteoarthritis of right hip M16.11
--- NOTE | 2020-03-12 09:49 | PC.CHAP ---
Pastoral Care Encounter/Spiritual Assessment Type of Contact [] Declined rn liaison visit [] Patient/Family/Request visit [] Outpatient visit [] Follow-up visit [] Physician referral [] Code/Alert [x] Routine visit [] Staff referral [] Actively dying [] Patient sleeping [] Family support [] [] Out of room [] Palliative care [] [] Receiving care in room [] Pre-surgical visit [] Trauma [] Long length of stay [] ICU visit [] Other: Relational/Emotional Strength [] Patient feels connected with others/family/visitors/staff [] Distress [] Loneliness/isolation [] Abandonment Spirituality of Patient [] Person of Meghan [] Attends Taoism of their Meghan [] Believes in Prayer [] Reads Bible or Advent materials [] There are Spiritual issues to be addressed Caisson Worker Interventions [x] Prayer [] Active listening [] Non-anxious presence [] Spiritual/emotional support [] Crisis/trauma care [] Spiritual counseling [] Bereavement support [] Provided bereavement packet [] Provided Bible/devotional materials [] Provided toy/stuffed animal, coloring book to patient or family member [] Provided Communion [] Anointing/[place] [] Salvation [x] Completed spiritual assessment [] Other: Impact on Illness or Injury [] Angry [] Fearful [] Anxious [] Often cries [] Exhaustion [] Unable to work [] Unable to attend mormon [] Unable to walk/stand [] Unable to read [] Unable to drive [] Unable to eat/drink [] Unable to sleep [] Unable to be with family [] Patient intubated [] Other: Summary Patient doing great. setting up in chair- healing process moving along very well. Time spent with patient 15 min
[2020-03-12] MEDS: famotidine 20 mg/2 mL INJ IVP (11:43)
[2020-03-12 12:00] VITALS: BP 115/74; PULSE 86; RESP 18; TEMP 36.7; O2SAT 96
[2020-03-12 13:19] VITALS: BP 115/74; PULSE 86; RESP 18; TEMP 36.7; O2SAT 96
--- NOTE | 2020-03-12 16:12 | P.DS_ITS ---
Discharge Providers Date of Admission: 03/11/20 10:24 Date of Discharge: March 12, 2020 Attending Provider at Admission: Jocelin Wood MD Attending Provider at Discharge: Jocelin Wood MD Primary Care Provider: ELAINE Villanueva Diagnoses at Discharge Discharge Diagnosis (1) History of total right hip arthroplasty: Status: Acute (2) Primary localized osteoarthritis of right hip: Status: Resolved Reason for Visit Reason for Visit: Reason For Visit: Right Total hip arthorplasty. 17653 Hospital Course Hospital Course: The patient was admitted on March 11, 2020 for same day surgery for the following procedure: Right total hip arthroplasty utilizing the following components: The [employer]ense Accolade II total hip system with a Trident Tritanium acetabulum. Implants: Trident II Tritanium solid back acetabular shell size 54 mm by E alpha code with an MDM cementless liner inner diameter 42 mm by E alpha code. A size 7 Accolade II femoral stem with a 127 degree neck angle with a size 28 mm outer diameter by +4 mm femoral offset, ceramic V40 and an MDM insert size 28 mm inner diameter by size 42E Discharge Summary: Patient was brought into the hospital as an inpatient observation overnight following same-day surgery for the above procedure. She did well that afternoon and was able to get up with physical therapy. On the day following surgery, the patient was doing well. She was felt to be independent and understood to her hip precautions. She noted that her hip felt better and more functional than it did prior to her surgical intervention. She was comfortable to be discharged home. She will arrange for either outpatient physical therapy or home therapy. I recommended that she consider home therapy initially. Physical Exam Const: COMMON NORMALS: no acute distress, patient oriented x3 and alert GENERAL APPEARANCE: cooperative and comfortable ORIENTATION/CONSCIOUSNESS: Yes awake HENMT: COMMON NORMALS: normocephalic and atraumatic HEAD & SCALP: normocephalic and atraumatic Eye: GENERAL EYE: appearance normal, both eyes and all related structures Chest: COMMONS NORMALS: normal inspection of the chest Resp: COMMON NORMALS: normal respiratory effort EFFORT & INSPECTION: Yes able to speak in complete sentences and Yes symmetric chest movement Extremity: RIGHT LOWER EXTREMITY: Yes hip joint (Dressing is dry and intact. There is no evidence of infection. ) Right hip: Yes inspection (There is no significant swelling about the hip.), Yes palpation (There is no tenderness to palpation.), Yes ROM (Not tested.) and Yes neurovascular exam (Intact with no evidence of DVT.) Neuro: COMMON NORMALS: patient oriented x3 SENSORIUM/ORIENTATION: Yes alert Psych: COMMON NORMALS: mental status grossly normal APPEARANCE: Yes grossly normal ATTITUDE: Yes calm and Yes engaged ATTENTION/CONCENTRATION: Yes attention grossly intact Skin: COMMON NORMALS: no rashes or lesions noted GENERAL SKIN EXAM: no rashes or lesions noted Urinary Catheter Management^: F: Cath Placed During This Visit: yes, but has since been removed by the nurse Reason for Continuing Indwelling Catheter: Not indwelling catheter Urinary Catheter Date of Insertion: 03/11/20 Urinary Catheter Time of Insertion: 07:35 Date Urinary Catheter Removed: 03/12/20 Time Urinary Catheter Discontinued: 06:00 Discharge Data Data Completed and Pending: Completed Studies During Hospitalization Category Date Time Status XR chest 2V* 7104 6 Routine Exams 03/06/20 14:37 Completed XR pelvis 1-2V* 7 2170 Routine Exams 03/11/20 10:05 Completed Labs from last 24 hours 03/12/20 03/12/20 06:10 06:10 WBC 10.5 H RBC 3.62 L Hgb 11.8 Hct 35.5 L MCV 98.1 MCH 32.6 MCHC 33.2 RDW 13.2 Plt Count 183 MPV 9.5 Neut % (Auto) 78.9 Lymph % (Auto) 12.3 Tompkins % (Auto) 8.0 Eos % (Auto) 0.0 Baso % (Auto) 0.3 Neut # (Auto) 8.3 H Lymph # (Auto) 1.3 Tompkins # (Auto) 0.8 Eos # (Auto) 0.0 Baso # (Auto) 0.0 Nucleated RBC % (a uto) 0 Nucleated RBCs # 0.0 Sodium 142 Potassium 3.3 L Chloride 109 H Carbon Dioxide 21 L Anion Gap 15.3 BUN 8 Creatinine 0.4 L GFR Calculation 165.1 H Glucose 116 H Calculated Osmolal ity 291 Calcium 8.3 L Procedures Performed: Right total hip arthroplasty utilizing the following components: The Local[employer]ense Accolade II total hip system with a Trident Tritanium acetabulum. Implants: Trident II Tritanium solid back acetabular shell size 54 mm by E alpha code with an MDM cementless liner inner diameter 42 mm by E alpha code. A size 7 Accolade II femoral stem with a 127 degree neck angle with a size 28 mm outer diameter by +4 mm femoral offset, ceramic V40 and an MDM insert size 28 mm inner diameter by size 42E Vitals: Last Vital Signs Temp 98.1 F 03/12/20 13:19 Pulse 86 03/12/20 13:19 Resp 18 03/12/20 13:19 BP 115/74 03/12/20 13:19 Pulse Ox 96 03/12/20 13:19 Discharge Plan Discharge Patient Disposition: Home Health Service Condition: Stable Prescriptions: New aspirin 325 mg Tablet,Delayed Release (Dr/Ec) 325 mg PO DAILY 30 Days Qty: 30 RF: 0 Continued chlorhexidine gluconate 0.12 % mouthwash 15 ml BUCCAL QID Qty: 30 RF: 0 lisinopril 20 mg tablet 20 mg PO DAILY RF: 0 amlodipine 5 mg tablet 5 mg PO DAILY RF: 0 multivitamin [Multiple Vitamins] Tablet 1 tab PO DAILY RF: 0 diclofenac sodium 75 mg tablet,delayed release (DR/EC) 75 mg PO Q12H PRN (Reason: pain) Qty: 30 RF: 0 cyclobenzaprine 5 mg tablet 10 mg PO TID PRN (Reason: muscle spasm) Qty: 20 RF: 0 Changed tramadol 50 mg tablet 50 mg PO Q6H PRN (Reason: Pain) Qty: 30 RF: 0 Held aspirin [Adult Low Dose Aspirin] 81 mg tablet,delayed release (DR/EC) 81 mg PO DAILY RF: 0 Hold Instructions: Resume on 04/02/20. Resume when off full strength aspirin Discontinued mupirocin 2 % ointment 1 applic TOPICAL BID Qty: 22 RF: 0 ibuprofen 200 mg Tablet 1,000 mg PO TID PRN (Reason: Pain) RF: 0 Hold Instructions: Resume on 11/30/19. hold while on diclofenec Discharge Orders: Discharge Order (Routine); Ordered 03/11/20 Ordered By: Jocelin Wood Other Ambulatory Orders: DME: Walker (Order) Location: None Selected Ordered By: Jocelin Wood Referrals: Jocelin Wood MD [Physician] - 03/27/20 8:45 am Discharge Diet: Advance as tolerated Discharge Activity: Limit activity as instructed, Use walker/crutches as instructed and As per PT/OT instructions Patient Instructions: Aspirin (By mouth), Tramadol (By mouth), Total Hip Replacement (DC) Activity Restrictions/Additional Instructions: Posterior Hip Precautions. Home PT to guide progression of activity. 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
== END 2020-03-12 15:31 | disposition home health service (06) ==
LOC: MEDSURG 10:48
PROVIDERS: Admitting Provider Specialist; PCP Nurse Practitioner Family; Visit Provider Specialist
PROC: (CPT 27130; principal; 2020-03-11 07:00)
DX: M16.11 Unilateral primary osteoarthritis, right hip (principal); J44.9 Chronic obstructive pulmonary disease, unspecified; I10 Essential (primary) hypertension; K21.9 Gastro-esophageal reflux disease without esophagitis; M19.90 Unspecified osteoarthritis, unspecified site; F17.210 Nicotine dependence, cigarettes, uncomplicated; Z79.82 Long term (current) use of aspirin
CPT/HCPCS: 27130; 12345; 51702; 71046; 72170; 80048; 80053; 81003; 85025; 85610; 85730; 87641; 93005; 96361; 96365; 96366; 96375; 97110; 97116; 97161; 97165; 97530; 97535; C1776; G0378; J0131; J0690; J1100; J2001; J2370; J2405; J2704; J3010; J3370; J3490; J7030

== ENCOUNTER → 2020-03-27 08:51 | Outpatient (BNVA) | payer MEDICARE, SELFPAY | PROVIDERS: PCP Nurse Practitioner Family; Visit Provider Specialist | DX: Z96.641 Presence of right artificial hip joint (principal) | CPT/HCPCS: 73502 ==

== ENCOUNTER → 2020-04-24 08:59 | Outpatient (BNVA) | payer MEDICARE, SELFPAY | PROVIDERS: PCP Nurse Practitioner Family; Visit Provider Specialist | DX: Z96.641 Presence of right artificial hip joint (principal) | CPT/HCPCS: 73502 ==

== ENCOUNTER 2020-06-02 14:59 | Inpatient (IN) | payer MEDICARE, SELFPAY ==
[2020-06-02] VITALS (13 sets, daily range): BP systolic 137–175; BP diastolic 82–108; PULSE 70–105; RESP 18–24; TEMP 36.2–36.7; O2SAT 83–96; BMI 30.8
--- NOTE | 2020-06-02 15:15 | XRR_ITS ---
PROCEDURE INFORMATION: Exam: XR Chest, 1 View Exam date and time: 06/02/2020 3:26 PM Age: 54 years old Clinical indication: Cough and shortness of breath; Smoker's cough; Additional info: SOB, cough since 06/01/20 TECHNIQUE: Imaging protocol: XR of the chest Views: 1 view. COMPARISON: CR XR chest 2V* [id number] 03/06/2020 2:56 PM FINDINGS: Lungs: Unremarkable. No consolidation. Pleural space: Unremarkable. No pleural effusion. No pneumothorax. Heart/Mediastinum: Unremarkable. No cardiomegaly. Bones/joints: Unremarkable. XR/XR chest 1V portable [id number] IMPRESSION: No acute findings.
--- NOTE | 2020-06-02 15:15 | ECG_ITS ---
[facility] Test Date: 2020-06-02 Pat Name: Amber Ventura Department: Room: Gender: Female Assistant Media Planner: : 1965 Requested By: Roselia Ayoub Order Number: [id number] Stefany MD: Cynthia Klein M.D. Measurements Intervals [place] Rate: 80 P: 53 MT: 147 QRS: 36 QRSD: 92 T: 59 QT: 351 QTc: 405 Interpretive Statements SINUS RHYTHM Compared to ECG 03/06/2020 14:44:33 No significant changes Electronically Signed On 06-02-2020 15:45:44 CDT by Cynthia Klein M.D. [id number]
--- NOTE | 2020-06-02 15:18 | W.ED.SOB ---
HPI - SOB/Dyspnea General: Chief Complaint: Shortness of Breath/Dyspnea Stated Complaint: cant breath Time Seen by Provider: 06/02/20 15:13 Source: patient Mode of arrival: ambulatory Limitations: no limitations History of Present Illness: HPI Narrative: 54-year-old female has a long history of COPD. States that increased shortness of breath over the last 2 days with getting much worse today. States she has had wheezing and albuterol inhalers not helping. She denies any fever or cough. She denies any chest pain. She denies any vomiting or diarrhea. Patient is currently in moderate distress with wheezing. MD elicited complaint: shortness of breath Pertinent past history: COPD Onset (ago): day(s) Timing: constant Severity: moderate Exacerbating factors: movement Relieving factors: bronchodilators Associated symptoms: Deny abdominal pain, chest pain, fever(s), nausea or vomiting Review of Systems Const: Denies: fever(s), chills, body aches or change in appetite Eyes: Denies: blurry vision or eye discomfort ENMT: Denies: throat pain or dental pain Card: Denies: chest pain Resp: Reports: dyspnea and wheezing GI: Denies: abdominal pain, nausea, vomiting or diarrhea : Denies: dysuria Musc: Denies: neck pain or back pain Skin/Breast: Denies: rash Neuro: Denies: headache(s) Psych: Denies: depression Nadeem/Lymph: Denies: easy bruising All/Imm: Denies: urticaria PFSH ED PFSH: Medical History Avascular necrosis of bone Diverticulosis large intestine w/o perforation or abscess w/bleeding HTN (hypertension) Hx of deep venous thrombosis Social History Smoking and tobacco status: current every day smoker Alcohol intake: current Alcohol intake frequency: 3 or more drinks per day Physical Exam Const: COMMON NORMALS: no acute distress, patient oriented x3 and healthy appearing HENMT: COMMON NORMALS: normocephalic and atraumatic HEAD & SCALP: normocephalic and atraumatic Eye: COMMON NORMALS: Equal, round and reactive pupils present and EOMs intact bilaterally PUPIL: Yes Equal, round and reactive pupils present Neck/C-Spine: COMMON NORMALS: full ROM and supple Chest: COMMONS NORMALS: normal inspection of the chest and normal palpation of entire chest wall Resp: COMMON NORMALS: normal respiratory effort, No retractions, No use of accessory muscles and clear to auscultation bilaterally EFFORT & INSPECTION: Yes respiratory distress and Yes audible wheezes AUSCULTATION: clear to auscultation bilaterally Cardio: COMMON NORMALS: regular rate, regular rhythm and No murmurs present (Cardio) RATE: regular rate RHYTHM: regular rhythm GI: COMMON NORMALS: Normal to inspection, nondistended, normoactive bowel sounds present, Soft to palpation, non-tender and no masses PALPATION: Yes Soft to palpation Extremity: COMMON NORMALS: normal to inspection and full ROM Neuro: COMMON NORMALS: patient oriented x3, moves all extremities and no focal motor deficits Psych: COMMON NORMALS: mental status grossly normal, Normal thought process present and cooperative THOUGHT PROCESS: Normal thought process present Skin: COMMON NORMALS: no rashes or lesions noted and no wounds GENERAL SKIN EXAM: no rashes or lesions noted Course Vital Signs: Vital signs: Vital Signs Temperature 97.1 F L 06/02/20 15:13 Pulse Rate 94 06/02/20 17:52 Respiratory Rate 22 H 06/02/20 17:52 Blood Pressure 175/105 06/02/20 15:13 Pulse Oximetry 93 06/02/20 17:52 MDM - SOB/Dyspnea MDM Narrative: Medical decision making narrative: Amber presents here with COPD exacerbation with shortness of breath. Patient has improved a little after breathing treatments but is still requiring [address] shows possible small pulmonary embolism she has no signs of pneumonia. Patient has no signs of COVID. I spoke to hospitalist Dr. Jay and will admit. Lab Data: Labs: Lab Results 06/02/20 06/02/20 Range/Units 15:39 15:39 WBC 5.1 (4.0-10.0) 10^3/ uL RBC 4.34 (4.1-5.3) 10^6/u L Hgb 13.8 (11.5-15.3) g/dL Hct 43.7 (37.0-47.0) % MCV 100.7 H (81-99) fL MCH 31.8 (28.0-34.0) pg MCHC 31.6 (30.0-36.0) g/dL RDW 13.3 (12.1-15.1) % Plt Count 204 (130-400) 10^3/c mm MPV 9.5 (7.4-10.4) fL Neut % (Auto) 55.7 % Lymph % (Auto) 23.6 % Callahan % (Auto) 17.3 % Eos % (Auto) 1.8 % Baso % (Auto) 1.2 % Neut # (Auto) 2.86 (1.8-7.7) 10^3/u L Lymph # (Auto) 1.2 (0.8-4.8) 10^3/u L Callahan # (Auto) 0.9 (0.2-0.9) 10^3/u L Eos # (Auto) 0.1 (0.0-0.8) 10^3/u L Baso # (Auto) 0.1 (0.0-0.1) 10^3/u L Nucleated RBC % (a uto) 0 % Nucleated RBCs # 0.0 /100WBC Sodium 141 (136-145) mmol/L Potassium 3.6 (3.5-5.1) mmol/L Chloride 109 H (98-107) mmol/L Carbon Dioxide 21 L (22-29) mmol/L Anion Gap 14.6 (5-19) BUN 10 (6-20) mg/dL Creatinine 0.5 (0.5-0.9) mg/dL GFR Calculation 127.6 (90-130) mL/min Glucose 102 (65-115) mg/dL Calculated Osmolal ity 288 (285-295) mOsm/k g Calcium 8.4 L (8.5-10.5) mg/dL Total Bilirubin 0.2 (0.15-1.2) mg/dL AST 21 (0-32) U/L ALT 19 (0-33) U/L Alkaline Phosphata se 120 H (35-105) IU/L NT-Pro-B Natriuret Pep 92 (0-125) pg/mL Total Protein 7.0 (6.6-8.7) g/dL Albumin 3.9 (3.5-5.2) g/dL Globulin 3.1 (1.3-4.6) g/dL Imaging Data^: CXR: Radiologist's impression: Status: Finalized Reason: sob [address] [id number] XRay Report Signed Patient: Amber Ventura Unit #: [id number] : 1965 Age/Sex: 54 / F ADM Date: 06/02/20 Loc: ER Room/Bed: Attending Dr: Ordering Provider/Ordering MD: Roselia Ayoub MD Date of Service: 06/02/20 Procedure(s): XR chest 1V portable [id number] Accession Number(s): [id number] Report Number: [id number] PROCEDURE INFORMATION: Exam: XR Chest, 1 View Exam date and time: 06/02/2020 3:26 PM Age: 54 years old Clinical indication: Cough and shortness of breath; Smoker's cough; Additional info: SOB, cough since 06/01/20 TECHNIQUE: Imaging protocol: XR of the chest Views: 1 view. COMPARISON: CR XR chest 2V* [id number] 03/06/2020 2:56 PM FINDINGS: Lungs: Unremarkable. No consolidation. Pleural space: Unremarkable. No pleural effusion. No pneumothorax. Heart/Mediastinum: Unremarkable. No cardiomegaly. Bones/joints: Unremarkable. XR/XR chest 1V portable [id number] IMPRESSION: No acute findings. EKG Data^: EKG 1: Attestation: I personally reviewed and interpreted this EKG as follows: EKG Interpretation Date: 06/02/20 EKG interpretation time: 15:29 Interpretation: nsr hr [address] or t wave abnormalities qrs 92 qtc 386 Discharge Plan Discharge Patient Disposition: Admitted As Inpatient Clinical Impression: Acute exacerbation of chronic obstructive airways disease Condition: Stable Referrals: Salazar,JENIFER LentzP [Primary Care Provider] - Coding Level of Care Code ED Tariff Counsel for Chg Fwd Exam Comprehensive
[2020-06-02 15:48] LABS: Basophils # 0.1 10^3/uL (0.0-0.1); Basophils % 1.2 %; Eosinophils # 0.1 10^3/uL (0.0-0.8); Eosinophils % 1.8 %; Hematocrit 43.7 % (37.0-47.0); Hemoglobin 13.8 g/dL (11.5-15.3); Lymphocytes # 1.2 10^3/uL (0.8-4.8); Lymphocytes % 23.6 %; Mean Corpuscular HGB Conc 31.6 g/dL (30.0-36.0); Mean Corpuscular Hemoglobin 31.8 pg (28.0-34.0); Mean Corpuscular Volume 100.7 fL (81-99); Mean Platelet Volume 9.5 fL (7.4-10.4); Monocytes # 0.9 10^3/uL (0.2-0.9); Monocytes % 17.3 %; Neutrophils # 2.86 10^3/uL (1.8-7.7); Neutrophils % 55.7 %; Nucleated Red Blood Cells % 0 %; Platelet Count 204 10^3/cmm (130-400); Red Blood Count 4.34 10^6/uL (4.1-5.3); Red Cell Distribution Width 13.3 % (12.1-15.1); White Blood Count 5.1 10^3/uL (4.0-10.0)
[2020-06-02] MEDS: ketorolac 30 mg/mL INJ 15 MG IVP (15:49)
[2020-06-02] MEDS: ipratropium-albuterol 3 mL Neb INHALATION (16:15)
[2020-06-02 16:18] LABS: Alanine Aminotransferase 19 U/L (0-33); Albumin Level 3.9 g/dL (3.5-5.2); Alkaline Phosphatase 120 IU/L (35-105); Anion Gap 14.6 (5-19); Aspartate Amino Transferase 21 U/L (0-32); Blood Urea Nitrogen 10 mg/dL (6-20); Calcium 8.4 mg/dL (8.5-10.5); Carbon Dioxide 21 mmol/L (22-29); Chloride 109 mmol/L (98-107); Globulin 3.1 g/dL (1.3-4.6); Glomerular Filtration Rate 127.6 mL/min (90-130); Glucose 102 mg/dL (65-115); NT Pro B Type Natriuretic Pept 92 pg/mL (0-125); Osmolality Calculated 288 mOsm/kg (285-295); Potassium 3.6 mmol/L (3.5-5.1); Sodium 141 mmol/L (136-145); Total Bilirubin 0.2 mg/dL (0.15-1.2)
--- NOTE | 2020-06-02 16:36 | CTR_ITS ---
PROCEDURE INFORMATION: Exam: CT Angiography Chest With Contrast Exam date and time: 06/02/2020 5:38 PM Age: 54 years old Clinical indication: Shortness of breath; Chest pain; Additional info: SOB TECHNIQUE: Imaging protocol: Computed tomographic angiography of the chest with intravenous contrast. 3D rendering: MIP and/or 3D reconstructed images were created by the technologist. Radiation optimization: All CT scans at this facility use at least one of these dose optimization techniques: automated exposure control; mA and/or kV adjustment per patient size (includes targeted exams where dose is matched to clinical indication); or iterative reconstruction. Contrast material: OMNI 350; Contrast volume: 66 ml; Contrast route: INTRAVENOUS (IV); COMPARISON: CR XR chest 1V portable [id number] 06/02/2020 3:16 PM RADIATION DOSE METRICS: Total DLP (mGy-cm): 624.19 FINDINGS: Pulmonary arteries: Series 2 images 235-247 demonstrate a small linear filling defect within the right lower lobe superior segmental pulmonary artery. No additional filling defects are identified. Aorta: No evidence of thoracic aortic aneurysm or dissection. Lungs: There is minor biapical fibrosis. Pleural space: Unremarkable. No pneumothorax. No pleural effusion. Heart: Unremarkable. No cardiomegaly. No pericardial effusion. No evidence of RV strain. Lymph nodes: Unremarkable. No enlarged lymph nodes. Gallbladder and bile ducts: Gallstones are noted in the gallbladder. Bones/joints: There are degenerative changes of the thoracic spine. No fracture identified. Soft tissues: Unremarkable. CT/CT angio chest PE protcl [id number] IMPRESSION: Small linear filling defect in the right lower lobe superior segmental pulmonary artery. This is consistent with a pulmonary embolus of uncertain age. Radiation Dose CTDIVOL = (mGy): DLP = 624.19 (mGy-cm)
[2020-06-02] MEDS: morphine 4 mg/mL SDV 1 mL IVP (17:29)
[2020-06-02] MEDS: iohexol 350 mg/mL 100 mL Btl IV (17:40)
--- NOTE | 2020-06-02 18:33 | PC.NURSE ---
PT AMBULATED TO RESTROOM AND RETURNED TO ROOM, O2 SATS 84%. O2 @ 2L/NC APPLIED @ 1700.
[2020-06-02 18:46] LABS: ABG PCO2 32.1 mmHg (35-45); ABG PH Result 7.39 (7.35-7.45); Arterial Blood Gas Hematocrit 46.1 % (37-47); Base Excess ABG -4.6 mmol/L (-2.0-2.0); Blood Gas Allen Test Pos; Blood Gas Operator Identificat MONRO; Blood Gas Sample Site Radial, left; Blood Gas Sample Type Arterial; HCO3 ABG 19.3 mmol/L (22-26); Oxygen Device NC
[2020-06-02] MEDS: magnesium sulfate premix 2 GM/50 ML PIGGYBACK IV (18:53)
[2020-06-02] MEDS: enoxaparin 100 mg/mL Syringe 90 MG SUBCUT (18:54)
--- NOTE | 2020-06-02 23:58 | P.HP_ITS ---
Providers/Chief Complaint Admitting Physician: Armaan Primary Care Provider: ELAINE Villanueva Chief Complaint: cant breath History of Present Illness Amber Ventura is a 54 year old female with history of COPD who presented to the emergency room with a history of difficulty breathing. Symptoms have been progressively worsening over the last few days. She has had wheezing and intermittent cough without any productive sputum. Denies any fevers. Has not had sore throat. No loss of taste or smell. No sick contacts. She has been staying home and away from other people. Initially when her symptoms began, use of an albuterol inhaler helped but the last 24 hours prior to admission she was becoming progressively more short of breath. She has some proximal-isms of coughing. Denies any chest pain or pleuritic pain. She has required previous hospitalization. She continues to smoke about a third of a pack of cigarettes a day. Work-up in the emergency room included a CTA of the chest. This ended up demonstrating a small linear filling defect in the right lower lobe superior segmental pulmonary artery consistent with a PE of uncertain age. Patient had hip arthroplasty on the right and on March 11 of this year. She has a history of a DVT 3 to 4 years ago in the left lower extremity. She states she has continued to have intermittent issues with swelling in the left lower extremity including recently. Denies pain in the left leg. Her difficulty breathing is not worse than previous episodes of COPD exacerbation. No hemoptysis to speak of. She was given Solu-Medrol, breathing treatment and Lovenox in the emergency room. She is being admitted for further care. Review of Systems Const: Reports: fatigue; Denies: fever(s), chills, body aches, change in appetite or malaise Eyes: Denies: change in vision ENMT: Denies: throat pain, dry mouth or nasal congestion Card: Denies: chest pain, palpitations or edema Resp: Reports: dyspnea, non-productive cough, wheezing and other (She was tested for COVID prior to her hip surgery in February and negative); Denies: productive cough, pain on inspiration or hemoptysis GI: Denies: abdominal pain, nausea, vomiting, diarrhea or constipation : Denies: difficulty voiding Musc: Reports: other (Not having issues with her right hip other than some discomfort with sleeping); Denies: joint swelling or joint redness Skin/Breast: Denies: rash or pruritus Neuro: Denies: headache(s), numbness in extremities, weakness in extremities or dizziness Psych: Denies: anxiety or depression Nadeem/Lymph: Denies: easy bruising or easy bleeding Medications/Allergies Home Medications Medication Instructions Recorded Confirmed Last Taken Type amlodipine 5 mg PO DAILY 10/30/19 06/02/20 06/01/20 History lisinopril 20 mg PO DAILY 10/30/19 06/02/20 06/01/20 History multivitamin [Multiple Vitamins] 1 tab PO DAILY 11/21/19 06/02/20 06/01/20 History aspirin 81 mg tablet,delayed 81 mg PO DAILY 02/19/20 06/02/20 06/01/20 History release tramadol 50 mg PO Q6H PRN #30 tab 03/12/20 06/02/20 Unknown Rx Allergies Allergy/AdvReac Type Severity Reaction Status Date / Time codeine Allergy Mild ALGY-Rash Verified 06/02/20 15:40 PFSH Acute PFSH: Medical History (Updated 06/03/20 @ 05:24 by Yael Crook MD) Avascular necrosis of bone COPD (chronic obstructive pulmonary disease) Diverticulosis large intestine w/o perforation or abscess w/bleeding HTN (hypertension) Hx of deep venous thrombosis (~2015) Left lower extremity, not associated with surgery per patient, treated with Eliquis x6 months Surgical History (Updated 06/03/20 @ 02:16 by Yael Crook MD) History of History of lumbar fusion History of total right hip arthroplasty (03/11/20) Dr Wood Family History (Updated 06/03/20 @ 03:20 by Yael Crook MD) Denies family history of CAD (coronary artery disease) Clotting disorder Bleeding disorder Social History (Updated 06/03/20 @ 05:26 by Yael Crook MD) Smoking and tobacco status: current every day smoker cigarettes Number of cigarettes per day: 6-10 Alcohol intake: current Alcohol use comment: Patient will have multiple drinks on the weekends but denies current daily drinking Marital status: / Additional social history: Has used THC in the past but denies currently Vitals/I&O/Wt Last Vital Signs Temp 98.1 F 06/02/20 20:00 Pulse 87 06/02/20 20:00 Resp 24 H 06/02/20 20:00 BP 145/82 06/02/20 20:00 Pulse Ox 93 06/02/20 20:00 06/02/20 06/02/20 06/03/20 14:59 22:59 06:59 Intake Total 300 / 300 Balance 300 / 300 Weight last 48 hrs Weight 89.358 kg Physical Exam Const: OTHER: Alert, oriented x3, cooperative HENMT: OTHER: Normocephalic atraumatic, mucous membranes moist Eye: OTHER: Pupils equally round and reactive to light Neck/C-Spine: OTHER: Supple Resp: OTHER: Wheezes noted bilaterally, paroxysms of coughing during examinat ion noted, no accessory muscle use when not coughing currently, able to speak in full sentences Cardio: OTHER: Regular rate and rhythm, no murmurs gallops or rubs. Pulses 2+ and equal at both feet. GI: OTHER: Abdomen soft, nontender, nondistended, positive bowel sounds : OTHER: No catheter Extremity: NARRATIVE EXTREMITY EXAM: No pitting edema noted to distal extremities, no palpable cords or calf tenderness Neuro: OTHER: Face symmetric, speech clear, handgrip equal, strength equal both feet Skin: NARRATIVE SKIN EXAM: Patient with dry skin, scattered minor abrasions/bug bites Data : 06/02/20 15:39 06/02/20 15:39 A&P Assessment and plan (1) Acute exacerbation of chronic obstructive airways disease: Status: Acute (2) Pulmonary embolism: Status: Acute Qualifiers: Pulmonary embolism type: single subsegmental (without acute cor pulmonale) Qualified Code(s): I26.93 - Single subsegmental pulmonary embolism without acute cor pulmonale (3) Nicotine dependence, cigarettes, with other nicotine-induced disorders: Status: Chronic (4) HTN (hypertension): Status: Chronic Qualifiers: Hypertension type: essential hypertension Qualified Code(s): I10 - Essential (primary) hypertension Additional A&P Information Inpatient admission Continue Lovenox for now Venous ultrasound of the lower extremities to evaluate for DVT Patient has been on Eliquis in the past and tolerated well she could be considered for ongoing treatment after discharge, may require long-term anticoagulation given that this is a second event unless we can discern that the previous DVT was also rather than spontaneous. I am assuming that this one may have been provoked from orthopedic surgery earlier this year though not certain. Monitor oxygen levels, not chronically on oxygen at home, PO2 was in the 50s in the emergency room Breathing treatments Prednisone Continue home amlodipine and lisinopril for blood pressure Nicotine patch if needed Supportive care otherwise Full code Plans were discussed with the patient and she was given an opportunity to ask questions Anticipated disposition home Attestations 2 Medical Necessity Statement*: Anticipated stay greater than 2 midnights in a patient presenting with an acute COPD exacerbation also found to have evidence of a segmental PE. She had orthopedic surgery in February of this year and has had a previous history of a DVT in the left lower extremity. Coding Level of Care Code Acute Finance Intern for Rani Lemonsd Diagnoses Acute exacerbation of chronic obstructive airways disease J44.1 Pulmonary embolism I26.93 Pulmonary embolism type: single subsegmental (without acute cor pulmonale) Nicotine dependence, cigarettes, with other nicotine-induced disorders F17.218 HTN (hypertension) I10 Hypertension type: essential hypertension
[2020-06-03] VITALS (14 sets, daily range): BP systolic 129–163; BP diastolic 77–90; PULSE 70–97; RESP 14–24; TEMP 36.7–36.9; O2SAT 92–96
--- NOTE | 2020-06-03 03:17 | USCV_ITS ---
Amber Ventura Age: 54 Gender: F : 1965 Exam Date: 06/03/2020 06:24 Ordering Phys: Yael Crook MD Technologist: Tonya Quintana Exam Location: [facility] [place] Indication: PE HISTORY: Pulmonary embolism. PROCEDURES: Venous duplex imaging was performed in bilateral lower extremities. The following venous structures were evaluated: common femoral vein, profunda vein, proximal portion of the greater saphenous vein, superficial femoral vein, and the popliteal vein. In addition, the posterior tibial and peroneal trunk were evaluated. Serial compression, augmentation maneuvers, and spectral Doppler flow evaluation were performed. FINDINGS: No evidence of DVT seen in any vessel visualized at this time in the right extremity. Evidence of occlusive deep vein thrombosis in the left superficial femoral vein extending to the posterior tibials with abnormal flow dynamics. CONCLUSIONS No evidence of right lower extremity DVT. Acute DVT left femoral vein extending to the popliteal and posterior tibial. Galindo Ram MD (Electronically Signed) Final Date: 03 June 2020 11:32 S
[2020-06-03] MEDS: ipratropium-albuterol 3 mL Neb INHALATION ×4 (03:59→20:33)
[2020-06-03] MEDS: enoxaparin 100 mg/mL Syringe 90 MG SUBCUT ×2 (05:11→17:30)
[2020-06-03] MEDS: TRAMadol 50 mg Tablet PO (05:15)
[2020-06-03] MEDS: acetaminophen 325 mg Tablet 650 MG PO (05:16)
[2020-06-03 05:48] LABS: Anion Gap 14.5 (5-19); Blood Urea Nitrogen 10 mg/dL (6-20); Carbon Dioxide 21 mmol/L (22-29); Chloride 111 mmol/L (98-107); Glomerular Filtration Rate 127.6 mL/min (90-130); Glucose 181 mg/dL (65-115); Osmolality Calculated 297 mOsm/kg (285-295); Potassium 3.5 mmol/L (3.5-5.1); Sodium 143 mmol/L (136-145)
[2020-06-03] MEDS: predniSONE 20 mg Tablet 40 MG PO (07:58)
[2020-06-03] MEDS: amlodipine 5 mg Tablet PO (07:59)
[2020-06-03] MEDS: aspirin 81 mg EC Tablet PO (07:59)
[2020-06-03] MEDS: lisinopril 20 mg Tablet PO (07:59)
--- NOTE | 2020-06-03 10:05 | USCV_ITS ---
Amber Ventura Age: 54 Gender: F : 1965 Exam Date: 06/03/2020 10:43 Ordering Phys: Krystian Larson MD Technologist: Nelson Epps Exam Location: [facility] [place], [place] Indication: PE BP: 125 / 71 HR: 77 Rhythm: Sinus Technical Quality: Fair MEASUREMENTS (Male / Female) Normal Values 2D ECHO LV Diastolic Diameter PLAX 5.1 cm 4.2 - 5.9 / 3.9 - 5.3 cm LV Systolic Diameter PLAX 3.4 cm IVS Diastolic Thickness 0.9 cm 0.6 - 1.0 / 0.6 - 0.9 cm IVS Systolic Thickness 1.3 cm LVPW Diastolic Thickness 0.9 cm 0.6 - 1.0 / 0.6 - 0.9 cm LVPW Systolic Thickness 1.3 cm LVOT Diameter 2.0 cm LV Ejection Fraction 2D Teich 60.1 % LV Ejection Fraction MOD 2C 56.4 % LV Ejection Fraction 2C AL 54.1 % LA Diameter 4.3 cm LA Width 2.8 cm LA Height 5.0 cm RA Width 3.8 cm RA Height 4.0 cm Aorta at Sinotubular Diameter 1.0 cm M-MODE LV Diastolic Diameter MM 6.0 cm 4.2 - 5.9 / 3.9 - 5.3 cm LV Systolic Diameter MM 4.1 cm LV Ejection Fraction MM Teich 58.4 % IVS Diastolic Thickness MM 1.0 cm 0.6 - 1.0 / 0.6 - 0.9 cm IVS Systolic Thickness MM 1.8 cm LVPW Diastolic Thickness MM 1.2 cm 0.6 - 1.0 / 0.6 - 0.9 cm LVPW Systolic Thickness MM 2.0 cm RV Diastolic Diameter MM 1.1 cm Aortic Annulus Diameter 3.5 cm LA Ao Ratio MM 1.2 MV E Point Septal Separation 1.5 cm DOPPLER AV Peak Velocity 145.0 cm/s LVOT Peak Velocity 111.0 cm/s AV Area Cont Eq vti 2.8 cm squared AV Area Cont Eq pk 2.5 cm squared MV Area PHT 5.0 cm squared Mitral E to A Ratio 0.9 MV E' Velocity 9.0 cm/s Mitral E to MV E' Ratio 10.2 Mitral E to LV E' Lateral Ratio 9.5 Mitral E to LV E' Septal Ratio 10.9 TR Peak Velocity 224.0 cm/s TR Peak Gradient 20.1 mmHg TV Peak E Velocity 119.0 cm/s Right Atrial Pressure 3.0 mmHg Pulmonary Artery Systolic Pressu 23.1 mmHg FINDINGS Left Ventricle Normal left ventricular cavity size. Normal left ventricular systolic function. No regional wall motion abnormalities. Left ventricular ejection fraction is estimated at 60 %. Grade I/IV diastolic dysfunction (abnormal relaxation filling pattern), normal to mildly elevated filling pressures. Right Ventricle The right ventricle is normal in size and function. Right Atrium The right atrium is normal in size. Left Atrium The left atrium is normal in size. Mitral Valve Structurally normal mitral valve without significant stenosis or prolapse. There is no mitral regurgitation. Aortic Valve Structurally normal aortic valve without significant sclerosis or stenosis. There is no aortic regurgitation. Tricuspid Valve Structurally normal tricuspid valve without significant stenosis or regurgitation. Pulmonary artery systolic pressure is normal. Pulmonic Valve Structurally normal pulmonic valve without significant stenosis. There is no pulmonic regurgitation. Pericardium Normal pericardium without effusion. Aorta Normal ascending aorta dimension. CONCLUSIONS 1-Normal left ventricular cavity size. Normal left ventricular systolic function. No regional wall motion abnormalities. Left ventricular ejection fraction is estimated at 60 %. Grade I/IV diastolic dysfunction (abnormal relaxation filling pattern), normal to mildly elevated filling pressures. 2-No significant valve abnormalities. 3-There is no pericardial effusion. 4-Pulmonary artery systolic pressure is within normal limits. 5-There are no prior echocardiogram studies to compare. Manish Murillo MD (Electronically Signed) Final Date: 03 June 2020 20:39 S
--- NOTE | 2020-06-03 15:40 | PM.PN ---
Subjective Subjective: Interval history: This morning patient states that she is doing better, still having an expiratory wheezing, no chest pain, no lightheadedness, no dizziness, no nausea, no vomiting, has some left leg pain, but overall doing better Vitals/I&O/Wt Last Vital Signs Temp 98.5 F 06/03/20 15:04 Pulse 97 06/03/20 15:04 Resp 14 06/03/20 15:04 BP 129/77 06/03/20 15:04 Pulse Ox 92 06/03/20 14:28 06/03/20 06/03/20 06/03/20 06:59 14:59 22:59 Intake Total 300 / 650 600 / 600 Balance 300 / 650 600 / 600 Weight last 48 hrs Weight 89.358 kg Physical Exam Const: COMMON NORMALS: no acute distress and patient oriented x3 HENMT: COMMON NORMALS: normocephalic HEAD & SCALP: normocephalic Neck/C-Spine: COMMON NORMALS: no JVD Resp: COMMON NORMALS: normal respiratory effort, No retractions and No use of accessory muscles AUSCULTATION: wheezes expiratory wheezes and throughout Cardio: COMMON NORMALS: no JVD, regular rate, regular rhythm, S1 normal heart sound present and S2 normal heart sound present RATE: regular rate RHYTHM: regular rhythm HEART SOUNDS: S1 normal heart sound present and S2 normal heart sound present GI: COMMON NORMALS: Normal to inspection, nondistended, normoactive bowel sounds present, Soft to palpation, non-tender, No hepatosplenomegaly present, no masses and no bruits PALPATION: Yes Soft to palpation and Yes No hepatosplenomegaly present Extremity: COMMON NORMALS: capillary refill normal, no clubbing, cyanosis or edema, no calf tenderness and no pedal edema Neuro: COMMON NORMALS: patient oriented x3 Psych: COMMON NORMALS: mental status grossly normal Data : 06/02/20 15:39 06/03/20 05:00 A&P Assessment and plan (1) Acute respiratory failure: Secondary to COPD exacerbation and right lower lobe superior segmental PE -Currently on 3 L nasal cannula -Has wheezing throughout lung gaviria -Clinically she feels better -Continue oxygen therapy -Increase Solu-Medrol to 40 mg every 12 hours -Continue nebulizer treatment -Continue treatment Lovenox, transition to Eliquis tomorrow -Advised smoking cessation -Monitor respiratory status closely -We will obtain cardiac echocardiogram Status: Acute (2) Left leg DVT: -Provoked DVT, left femoral vein extending to the popliteal and posterior tibial -From right total hip arthroplasty -Anticoagulation as above Status: Acute (3) Pulmonary embolism: -Small linear filling defect in the right lower lobe superior segmental pulmonary artery -Likely provoked, associated left lower extremity DVT, postoperative from hip arthroplasty Status: Acute Qualifiers: Pulmonary embolism type: single subsegmental (without acute cor pulmonale) Qualified Code(s): I26.93 - Single subsegmental pulmonary embolism without acute cor pulmonale (4) Acute exacerbation of chronic obstructive airways disease: Status: Acute (5) History of total right hip arthroplasty: Status: Acute (6) Primary localized osteoarthritis of right hip: Status: Resolved (7) HTN (hypertension): Status: Chronic Qualifiers: Hypertension type: essential hypertension Qualified Code(s): I10 - Essential (primary) hypertension Attestations Medical Necessity Statement*: Cards hospitalization, greater than 2 midnights, acute respiratory failure from COPD and pulmonary embolism Coding Level of Care Code Acute 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
[2020-06-04] VITALS (15 sets, daily range): BP systolic 114–151; BP diastolic 72–86; PULSE 63–91; RESP 14–24; TEMP 36.4–36.9; O2SAT 93–96
[2020-06-04] MEDS: ipratropium-albuterol 3 mL Neb INHALATION ×4 (03:10→20:21)
[2020-06-04] MEDS: TRAMadol 50 mg Tablet PO ×2 (03:39→23:05)
[2020-06-04] MEDS: enoxaparin 100 mg/mL Syringe 90 MG SUBCUT ×2 (05:30→17:25)
[2020-06-04 06:03] LABS: Basophils % 0.1 %; Hematocrit 41.4 % (37.0-47.0); Hemoglobin 13.3 g/dL (11.5-15.3); Lymphocytes # 0.9 10^3/uL (0.8-4.8); Lymphocytes % 8.9 %; Mean Corpuscular HGB Conc 32.1 g/dL (30.0-36.0); Mean Corpuscular Hemoglobin 31.9 pg (28.0-34.0); Mean Corpuscular Volume 99.3 fL (81-99); Monocytes # 0.5 10^3/uL (0.2-0.9); Monocytes % 4.7 %; Neutrophils # 8.38 10^3/uL (1.8-7.7); Neutrophils % 85.8 %; Nucleated Red Blood Cells % 0 %; Platelet Count 240 10^3/cmm (130-400); Red Blood Count 4.17 10^6/uL (4.1-5.3); Red Cell Distribution Width 13.4 % (12.1-15.1); White Blood Count 9.8 10^3/uL (4.0-10.0)
[2020-06-04 06:59] LABS: Alanine Aminotransferase 11 U/L (0-33); Albumin Level 3.5 g/dL (3.5-5.2); Alkaline Phosphatase 102 IU/L (35-105); Anion Gap 13.8 (5-19); Aspartate Amino Transferase 15 U/L (0-32); Blood Urea Nitrogen 14 mg/dL (6-20); Calcium 8.8 mg/dL (8.5-10.5); Carbon Dioxide 22 mmol/L (22-29); Chloride 109 mmol/L (98-107); Globulin 2.6 g/dL (1.3-4.6); Glomerular Filtration Rate 127.6 mL/min (90-130); Glucose 130 mg/dL (65-115); Magnesium 1.9 mg/dL (1.7-2.3); Osmolality Calculated 290 mOsm/kg (285-295); Phosphorus 3.6 mg/dL (2.5-4.5); Potassium 3.8 mmol/L (3.5-5.1); Sodium 141 mmol/L (136-145); Total Bilirubin 0.2 mg/dL (0.15-1.2); Total Protein 6.1 g/dL (6.6-8.7)
[2020-06-04] MEDS: amlodipine 5 mg Tablet PO (08:18)
[2020-06-04] MEDS: aspirin 81 mg EC Tablet PO (08:18)
[2020-06-04] MEDS: lisinopril 20 mg Tablet PO (08:18)
[2020-06-04] MEDS: nicotine 14 mg Patch 1 PATCH TRANSDERMA (08:20)
--- NOTE | 2020-06-04 13:20 | PM.PN ---
Subjective Subjective: Interval history: This morning patient is ambulating with physical therapy, states that she is overall doing better, still having wheezing on exam, no lightheadedness, dizziness, no chest pain, no nausea, no vomiting Vitals/I&O/Wt Last Vital Signs Temp 97.9 F 06/04/20 11:32 Pulse 67 06/04/20 11:32 Resp 20 H 06/04/20 11:32 BP 114/72 06/04/20 11:32 Pulse Ox 94 06/04/20 11:32 06/03/20 06/04/20 06/04/20 22:59 06:59 14:59 Intake Total 480 / 1080 720 / 720 Output Total 0 / 0 400 / 400 Balance 480 / 1080 -400 / 680 720 / 720 Weight last 48 hrs Weight 89.358 kg Physical Exam Const: COMMON NORMALS: no acute distress and patient oriented x3 HENMT: COMMON NORMALS: normocephalic HEAD & SCALP: normocephalic Neck/C-Spine: COMMON NORMALS: no JVD Resp: COMMON NORMALS: normal respiratory effort, No retractions and No use of accessory muscles AUSCULTATION: wheezes Cardio: COMMON NORMALS: no JVD, regular rate, regular rhythm, S1 normal heart sound present and S2 normal heart sound present RATE: regular rate RHYTHM: regular rhythm HEART SOUNDS: S1 normal heart sound present and S2 normal heart sound present GI: COMMON NORMALS: Normal to inspection, nondistended, normoactive bowel sounds present, Soft to palpation, non-tender, No hepatosplenomegaly present, no masses and no bruits PALPATION: Yes Soft to palpation and Yes No hepatosplenomegaly present Extremity: COMMON NORMALS: capillary refill normal, no clubbing, cyanosis or edema, no calf tenderness and no pedal edema Neuro: COMMON NORMALS: patient oriented x3 Psych: COMMON NORMALS: mental status grossly normal Data : 06/04/20 05:27 06/04/20 05:27 A&P Assessment and plan (1) Acute respiratory failure: Secondary to COPD exacerbation and right lower lobe superior segmental PE -Currently on 3 L nasal cannula -Has wheezing throughout lung gaviria -Clinically she feels better -Continue oxygen therapy -Increase Solu-Medrol to 40 mg every 12 hours -Continue nebulizer treatment -Continue treatment Lovenox, transition to Eliquis on discharge -Advised smoking cessation -Monitor respiratory status closely -Echocardiogram shows EF of 60%, grade 1 out of 4 diastolic dysfunction, no regional wall motion abnormalities Status: Acute (2) Left leg DVT: -Provoked DVT, left femoral vein extending to the popliteal and posterior tibial -From right total hip arthroplasty -Anticoagulation as above Status: Acute (3) Pulmonary embolism: -Small linear filling defect in the right lower lobe superior segmental pulmonary artery -Likely provoked, associated left lower extremity DVT, postoperative from hip arthroplasty Status: Acute Qualifiers: Pulmonary embolism type: single subsegmental (without acute cor pulmonale) Qualified Code(s): I26.93 - Single subsegmental pulmonary embolism without acute cor pulmonale (4) Acute exacerbation of chronic obstructive airways disease: Status: Acute (5) History of total right hip arthroplasty: Status: Acute (6) Primary localized osteoarthritis of right hip: Status: Resolved (7) HTN (hypertension): Status: Chronic Qualifiers: Hypertension type: essential hypertension Qualified Code(s): I10 - Essential (primary) hypertension Additional A&P Information Continue home amlodipine and lisinopril for blood pressure Nicotine patch if needed Supportive care otherwise Full code Plans were discussed with the patient and she was given an opportunity to ask questions Anticipated disposition home Attestations Medical Necessity Statement*: Requires continued hospitalization due to acute respiratory failure secondary COPD, pulmonary embolism Coding Level of Care Code Acute Clinical Cytopathologist for [facility] Diagnoses Acute respiratory failure J96.00 Left leg DVT I82.402 Pulmonary embolism I26.93 Pulmonary embolism type: single subsegmental (without acute cor pulmonale) Acute exacerbation of chronic obstructive airways disease J44.1 History of total right hip arthroplasty Z96.641 Primary localized osteoarthritis of right hip M16.11 HTN (hypertension) I10 Hypertension type: essential hypertension
--- NOTE | 2020-06-04 14:22 | PC.RESP ---
Smoking Cessation and Pulmonary Rehab information sent to patient.
[2020-06-04] MEDS: acetaminophen 325 mg Tablet 650 MG PO (23:05)
[2020-06-05] VITALS (10 sets, daily range): BP systolic 124–143; BP diastolic 74–78; PULSE 64–79; RESP 18–22; TEMP 36.5–37.1; O2SAT 92–95
[2020-06-05 05:31] LABS: Hematocrit 40.4 % (37.0-47.0); Hemoglobin 12.8 g/dL (11.5-15.3); Lymphocytes # 1.2 10^3/uL (0.8-4.8); Lymphocytes % 13.6 %; Mean Corpuscular HGB Conc 31.7 g/dL (30.0-36.0); Mean Corpuscular Hemoglobin 31.4 pg (28.0-34.0); Mean Corpuscular Volume 99.3 fL (81-99); Mean Platelet Volume 10.2 fL (7.4-10.4); Monocytes # 0.5 10^3/uL (0.2-0.9); Monocytes % 5.3 %; Neutrophils # 6.93 10^3/uL (1.8-7.7); Neutrophils % 80.5 %; Nucleated Red Blood Cells % 0 %; Platelet Count 236 10^3/cmm (130-400); Red Blood Count 4.07 10^6/uL (4.1-5.3); Red Cell Distribution Width 13.4 % (12.1-15.1); White Blood Count 8.6 10^3/uL (4.0-10.0)
[2020-06-05] MEDS: enoxaparin 100 mg/mL Syringe 90 MG SUBCUT (05:31)
[2020-06-05 06:11] LABS: Alanine Aminotransferase 22 U/L (0-33); Albumin Level 3.4 g/dL (3.5-5.2); Alkaline Phosphatase 86 IU/L (35-105); Anion Gap 12.1 (5-19); Aspartate Amino Transferase 22 U/L (0-32); Blood Urea Nitrogen 14 mg/dL (6-20); Calcium 8.2 mg/dL (8.5-10.5); Carbon Dioxide 23 mmol/L (22-29); Chloride 110 mmol/L (98-107); Globulin 2.8 g/dL (1.3-4.6); Glomerular Filtration Rate 165.1 mL/min (90-130); Glucose 116 mg/dL (65-115); Osmolality Calculated 289 mOsm/kg (285-295); Phosphorus 3.8 mg/dL (2.5-4.5); Potassium 4.1 mmol/L (3.5-5.1); Sodium 141 mmol/L (136-145); Total Bilirubin 0.2 mg/dL (0.15-1.2); Total Protein 6.2 g/dL (6.6-8.7)
[2020-06-05] MEDS: aspirin 81 mg EC Tablet PO (08:44)
[2020-06-05] MEDS: lisinopril 20 mg Tablet PO (08:44)
[2020-06-05] MEDS: amlodipine 5 mg Tablet PO (08:44)
[2020-06-05] MEDS: ipratropium-albuterol 3 mL Neb INHALATION ×4 (09:12→20:15)
--- NOTE | 2020-06-05 11:32 | PM.PN ---
Subjective Subjective: Interval history: Patient continues to have complaints of wheezing this morning, but no significant shortness of breath with exertion, is down to 2 L nasal cannula, no nausea, no vomiting, no chest pain Vitals/I&O/Wt Last Vital Signs Temp 97.9 F 06/05/20 11:26 Pulse 76 06/05/20 11:26 Resp 22 H 06/05/20 11:26 BP 126/74 06/05/20 11:26 Pulse Ox 93 06/05/20 11:26 06/04/20 06/05/20 06/05/20 22:59 06:59 14:59 Intake Total 120 / 840 360 / 360 Output Total 550 / 550 850 / 1400 Balance -430 / 290 -850 / -560 360 / 360 Physical Exam Const: COMMON NORMALS: no acute distress and patient oriented x3 Neck/C-Spine: COMMON NORMALS: no JVD Resp: COMMON NORMALS: normal respiratory effort, No retractions and No use of accessory muscles AUSCULTATION: wheezes expiratory wheezes and throughout Cardio: COMMON NORMALS: no JVD, regular rate, regular rhythm, S1 normal heart sound present and S2 normal heart sound present RATE: regular rate RHYTHM: regular rhythm HEART SOUNDS: S1 normal heart sound present and S2 normal heart sound present GI: COMMON NORMALS: Normal to inspection, nondistended, normoactive bowel sounds present, Soft to palpation, non-tender, No hepatosplenomegaly present, no masses and no bruits PALPATION: Yes Soft to palpation and Yes No hepatosplenomegaly present Extremity: COMMON NORMALS: capillary refill normal, no clubbing, cyanosis or edema, no calf tenderness and no pedal edema Neuro: COMMON NORMALS: patient oriented x3 Psych: COMMON NORMALS: mental status grossly normal Data : 06/05/20 05:00 06/05/20 05:00 A&P Assessment and plan (1) Acute respiratory failure: Secondary to COPD exacerbation and right lower lobe superior segmental PE -Currently on 2, still present today L nasal cannula -Has wheezing throughout lung gaviria -Clinically she feels better -Continue oxygen therapy -Increase Solu-Medrol to 40 mg every 8 hours -Continue nebulizer treatment -Transition to Eliquis tonight -Advised smoking cessation -Monitor respiratory status closely -Echocardiogram shows EF of 60%, grade 1 out of 4 diastolic dysfunction, no regional wall motion abnormalities -We will give 1 dose of Lasix 40 mg IV once today Status: Acute (2) Left leg DVT: -Provoked DVT, left femoral vein extending to the popliteal and posterior tibial -From right total hip arthroplasty -Anticoagulation as above Status: Acute (3) Pulmonary embolism: -Small linear filling defect in the right lower lobe superior segmental pulmonary artery -Likely provoked, associated left lower extremity DVT, postoperative from hip arthroplasty Status: Acute Qualifiers: Pulmonary embolism type: single subsegmental (without acute cor pulmonale) Qualified Code(s): I26.93 - Single subsegmental pulmonary embolism without acute cor pulmonale (4) Acute exacerbation of chronic obstructive airways disease: Status: Acute (5) History of total right hip arthroplasty: Status: Acute (6) Primary localized osteoarthritis of right hip: Status: Resolved (7) HTN (hypertension): Status: Chronic Qualifiers: Hypertension type: essential hypertension Qualified Code(s): I10 - Essential (primary) hypertension Additional A&P Information Continue home amlodipine and lisinopril for blood pressure Nicotine patch if needed Supportive care otherwise Full code Plans were discussed with the patient and she was given an opportunity to ask questions Anticipated disposition home Attestations Medical Necessity Statement*: Requires continued hospitalization for acute respiratory failure, likely discharge in the next 24 hours Coding Level of Care Code 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
--- NOTE | 2020-06-05 11:44 | PC.SOCIAL ---
IMM Updated Pg. 2 of IMM updated with patient, who verbalized understanding. Copy provided to patient.
[2020-06-05] MEDS: FUROsemide 10 mg/mL SDV 4mL 40 MG IVP (12:18)
[2020-06-05] MEDS: apixaban 5 mg Tablet 10 MG PO (17:37)
[2020-06-05] MEDS: TRAMadol 50 mg Tablet PO (21:27)
[2020-06-05] MEDS: acetaminophen 325 mg Tablet 650 MG PO (21:28)
[2020-06-06] VITALS (15 sets, daily range): BP systolic 136–161; BP diastolic 76–96; PULSE 62–101; RESP 16–22; TEMP 36.6–37.1; O2SAT 90–97
[2020-06-06] MEDS: ipratropium-albuterol 3 mL Neb INHALATION ×4 (03:10→20:38)
[2020-06-06 04:03] LABS: Basophils % 0.1 %; Hematocrit 46.3 % (37.0-47.0); Hemoglobin 14.7 g/dL (11.5-15.3); Lymphocytes # 1.3 10^3/uL (0.8-4.8); Lymphocytes % 12.7 %; Mean Corpuscular HGB Conc 31.7 g/dL (30.0-36.0); Mean Corpuscular Volume 97.7 fL (81-99); Mean Platelet Volume 10.4 fL (7.4-10.4); Monocytes # 0.4 10^3/uL (0.2-0.9); Neutrophils # 8.41 10^3/uL (1.8-7.7); Neutrophils % 81.8 %; Nucleated Red Blood Cells % 0 %; Platelet Count 235 10^3/cmm (130-400); Red Blood Count 4.74 10^6/uL (4.1-5.3); Red Cell Distribution Width 13.1 % (12.1-15.1); White Blood Count 10.3 10^3/uL (4.0-10.0)
[2020-06-06 04:24] LABS: Alanine Aminotransferase 38 U/L (0-33); Albumin Level 4.1 g/dL (3.5-5.2); Alkaline Phosphatase 96 IU/L (35-105); Anion Gap 13.6 (5-19); Aspartate Amino Transferase 34 U/L (0-32); Blood Urea Nitrogen 19 mg/dL (6-20); Calcium 8.7 mg/dL (8.5-10.5); Carbon Dioxide 25 mmol/L (22-29); Chloride 106 mmol/L (98-107); Globulin 3.2 g/dL (1.3-4.6); Glomerular Filtration Rate 127.6 mL/min (90-130); Glucose 122 mg/dL (65-115); Magnesium 2.1 mg/dL (1.7-2.3); Osmolality Calculated 290 mOsm/kg (285-295); Potassium 3.6 mmol/L (3.5-5.1); Sodium 141 mmol/L (136-145); Total Bilirubin 0.2 mg/dL (0.15-1.2); Total Protein 7.3 g/dL (6.6-8.7)
[2020-06-06] MEDS: lisinopril 20 mg Tablet PO (08:52)
[2020-06-06] MEDS: amlodipine 5 mg Tablet PO (08:52)
[2020-06-06] MEDS: apixaban 5 mg Tablet 10 MG PO ×2 (08:52→17:03)
[2020-06-06] MEDS: aspirin 81 mg EC Tablet PO (08:52)
[2020-06-06] MEDS: TRAMadol 50 mg Tablet PO (08:56)
[2020-06-06] MEDS: bisacodyl 5 mg Tablet 10 MG PO (11:41)
[2020-06-06] MEDS: polyethylene glycol 3350 Pkt 17 gm PO (11:42)
--- NOTE | 2020-06-06 13:25 | P.PN_ITS ---
Subjective Subjective: Interval history: This morning patient continues to have expiratory wheezing, no fevers, chills, nausea, vomiting, no lightheadedness, dizziness, is a bit fearful of ambulation given her large left lower extremity DVT Vitals/I&O/Wt Last Vital Signs Temp 98.0 F 06/06/20 11:23 Pulse 76 06/06/20 11:23 Resp 18 06/06/20 11:23 BP 144/85 06/06/20 11:23 Pulse Ox 90 06/06/20 11:23 06/05/20 06/06/20 06/06/20 22:59 06:59 14:59 Intake Total 720 / 1440 340 / 340 Output Total 1700 / 1700 320 / 2020 Balance -980 / -260 -320 / -580 340 / 340 Physical Exam Const: COMMON NORMALS: no acute distress and patient oriented x3 HENMT: COMMON NORMALS: normocephalic HEAD & SCALP: normocephalic Neck/C-Spine: COMMON NORMALS: no JVD Resp: COMMON NORMALS: normal respiratory effort, No retractions and No use of accessory muscles AUSCULTATION: wheezes expiratory wheezes and throughout Cardio: COMMON NORMALS: no JVD, regular rate, regular rhythm, S1 normal heart sound present and S2 normal heart sound present RATE: regular rate RHYTHM: regular rhythm HEART SOUNDS: S1 normal heart sound present and S2 normal heart sound present GI: COMMON NORMALS: Normal to inspection, nondistended, normoactive bowel sounds present, Soft to palpation, non-tender, No hepatosplenomegaly present, no masses and no bruits PALPATION: Yes Soft to palpation and Yes No hepatos plenomegaly present Extremity: COMMON NORMALS: capillary refill normal, no clubbing, cyanosis or edema, no calf tenderness and no pedal edema Neuro: COMMON NORMALS: patient oriented x3 Psych: COMMON NORMALS: mental status grossly normal Data : 06/06/20 03:28 06/06/20 03:28 A&P Assessment and plan (1) Acute respiratory failure: Secondary to COPD exacerbation and right lower lobe superior segmental PE -Currently on 2, still present today L nasal cannula -Has wheezing throughout lung gaviria which have persisted -Clinically she feels better -Continue oxygen therapy -Increase Solu-Medrol to 40 mg every 8 hours -Continue nebulizer treatment -Continue Eliquis -Advised smoking cessation -Monitor respiratory status closely -Echocardiogram shows EF of 60%, grade 1 out of 4 diastolic dysfunction, no regional wall motion abnormalities -We will give 1 dose of Lasix 40 mg IV once today Status: Acute (2) Left leg DVT: -Provoked DVT, left femoral vein extending to the popliteal and posterior tibial -From right total hip arthroplasty -Anticoagulation as above Status: Acute (3) Pulmonary embolism: -Small linear filling defect in the right lower lobe superior segmental pulmonary artery -Likely provoked, associated left lower extremity DVT, postoperative from hip arthroplasty Status: Acute Qualifiers: Pulmonary embolism type: single subsegmental (without acute cor pulmonale) Qualified Code(s): I26.93 - Single subsegmental pulmonary embolism without acute cor pulmonale (4) Acute exacerbation of chronic obstructive airways disease: Status: Acute (5) History of total right hip arthroplasty: Status: Acute (6) Primary localized osteoarthritis of right hip: Status: Resolved (7) HTN (hypertension): Status: Chronic Qualifiers: Hypertension type: essential hypertension Qualified Code(s): I10 - Essential (primary) hypertension Additional A&P Information Continue home amlodipine and lisinopril for blood pressure Nicotine patch if needed Supportive care otherwise Full code Plans were discussed with the patient and she was given an opportunity to ask questions Anticipated disposition home Attestations Medical Necessity Statement*: She requires hospitalization for acute respiratory failure secondary COPD, CHF, pulmonary embolism Coding Level of Care Code Acute Spring Up Supervisor for [facility] Diagnoses Acute respiratory failure J96.00 Left leg DVT I82.402 Pulmonary embolism I26.93 Pulmonary embolism type: single subsegmental (without acute cor pulmonale) Acute exacerbation of chronic obstructive airways disease J44.1 History of total right hip arthroplasty Z96.641 Primary localized osteoarthritis of right hip M16.11 HTN (hypertension) I10 Hypertension type: essential hypertension
[2020-06-06] MEDS: doxycycline 100 mg Tablet PO (17:03)
[2020-06-06] MEDS: potassium chloride ER 10 mEq Tablet 40 MEQ PO (17:04)
[2020-06-06] MEDS: FUROsemide 10 mg/mL SDV 4mL 40 MG IVP (17:13)
[2020-06-07] VITALS (14 sets, daily range): BP systolic 126–151; BP diastolic 82–91; PULSE 55–101; RESP 16–24; TEMP 36.6–36.8; O2SAT 76–95
[2020-06-07] MEDS: ipratropium-albuterol 3 mL Neb INHALATION ×4 (03:00→20:01)
[2020-06-07 04:17] LABS: Basophils % 0.1 %; Hemoglobin 14.4 g/dL (11.5-15.3); Lymphocytes % 9.9 %; Mean Corpuscular HGB Conc 32.7 g/dL (30.0-36.0); Mean Corpuscular Volume 97.8 fL (81-99); Mean Platelet Volume 10.1 fL (7.4-10.4); Monocytes # 0.4 10^3/uL (0.2-0.9); Neutrophils % 84.3 %; Nucleated Red Blood Cells % 0 %; Platelet Count 239 10^3/cmm (130-400); Red Cell Distribution Width 12.9 % (12.1-15.1); White Blood Count 9.9 10^3/uL (4.0-10.0)
[2020-06-07 04:43] LABS: Alanine Aminotransferase 47 U/L (0-33); Albumin Level 3.9 g/dL (3.5-5.2); Alkaline Phosphatase 84 IU/L (35-105); Anion Gap 13.5 (5-19); Aspartate Amino Transferase 24 U/L (0-32); Blood Urea Nitrogen 20 mg/dL (6-20); Calcium 8.8 mg/dL (8.5-10.5); Carbon Dioxide 27 mmol/L (22-29); Chloride 104 mmol/L (98-107); Globulin 2.8 g/dL (1.3-4.6); Glomerular Filtration Rate 103.4 mL/min (90-130); Glucose 138 mg/dL (65-115); Osmolality Calculated 289 mOsm/kg (285-295); Phosphorus 4.1 mg/dL (2.5-4.5); Potassium 4.5 mmol/L (3.5-5.1); Sodium 140 mmol/L (136-145); Total Bilirubin 0.2 mg/dL (0.15-1.2); Total Protein 6.7 g/dL (6.6-8.7)
[2020-06-07] MEDS: lisinopril 20 mg Tablet PO (08:15)
[2020-06-07] MEDS: aspirin 81 mg EC Tablet PO (08:15)
[2020-06-07] MEDS: apixaban 5 mg Tablet 10 MG PO ×2 (08:15→17:54)
[2020-06-07] MEDS: doxycycline 100 mg Tablet PO ×2 (08:15→17:54)
[2020-06-07] MEDS: amlodipine 5 mg Tablet PO (08:15)
[2020-06-07] MEDS: acetaminophen 325 mg Tablet 650 MG PO ×2 (08:16→20:11)
--- NOTE | 2020-06-07 09:16 | PC.SOCIAL ---
IMM completed with explanation of rights with pt. Copy of rights given to pt.
--- NOTE | 2020-06-07 13:55 | P.PN_ITS ---
Subjective Subjective: Interval history: Patient is feeling much better this morning, was able to ambulate a bit more, still has some end expiratory wheezing, no fevers, chills, no nausea, no vomiting Vitals/I&O/Wt Last Vital Signs Temp 97.8 F 06/07/20 12:00 Pulse 74 06/07/20 12:00 Resp 18 06/07/20 12:00 BP 142/91 06/07/20 12:00 Pulse Ox 95 06/07/20 12:00 06/06/20 06/07/20 06/07/20 22:59 06:59 14:59 Intake Total 760 / 1100 720 / 720 Output Total 950 / 950 1000 / 1950 Balance -190 / 150 -1000 / -850 720 / 720 Physical Exam Const: COMMON NORMALS: no acute distress and patient oriented x3 HENMT: COMMON NORMALS: normocephalic HEAD & SCALP: normocephalic Neck/C-Spine: COMMON NORMALS: no JVD Resp: COMMON NORMALS: normal respiratory effort, No retractions, No use of accessory muscles and clear to auscultation bilaterally AUSCULTATION: clear to auscultation bilaterally and wheezes Cardio: COMMON NORMALS: no JVD, regular rate, regular rhythm, S1 normal heart sound present and S2 normal heart sound present RATE: regular rate RHYTHM: regular rhythm HEART SOUNDS: S1 normal heart sound present and S2 normal heart sound present GI: COMMON NORMALS: Normal to inspection, nondistended, normoactive bowel sounds present, Soft to palpation, non-tender, No hepatosplenomegaly present, no masses and no bruits PALPATION: Yes Soft to palpation and Yes No hepatospl enomegaly present Extremity: COMMON NORMALS: capillary refill normal, no clubbing, cyanosis or edema, no calf tenderness and no pedal edema Neuro: COMMON NORMALS: patient oriented x3 Psych: COMMON NORMALS: mental status grossly normal Data : 06/07/20 03:50 06/07/20 03:50 A&P Assessment and plan (1) Acute respiratory failure: Secondary to COPD exacerbation and right lower lobe superior segmental PE -Currently on 2-3, still present today L nasal cannula -Has some end expiratory wheezing -Clinically she feels better -Continue oxygen therapy -Increase Solu-Medrol to 40 mg every 8 hours -Continue nebulizer treatment -Continue Eliquis -Advised smoking cessation -Monitor respiratory status closely -Echocardiogram shows EF of 60%, grade 1 out of 4 diastolic dysfunction, no regional wall motion abnormalities -Likely discharge in the next 24 hours Status: Acute (2) Left leg DVT: -Provoked DVT, left femoral vein extending to the popliteal and posterior tibial -From right total hip arthroplasty -Anticoagulation as above Status: Acute (3) Pulmonary embolism: -Small linear filling defect in the right lower lobe superior segmental pulmonary artery -Likely provoked, associated left lower extremity DVT, postoperative from hip arthroplasty Status: Acute Qualifiers: Pulmonary embolism type: single subsegmental (without acute cor pulmonal e) Qualified Code(s): I26.93 - Single subsegmental pulmonary embolism without acute cor pulmonale (4) Acute exacerbation of chronic obstructive airways disease: Status: Acute (5) History of total right hip arthroplasty: Status: Acute (6) Primary localized osteoarthritis of right hip: Status: Resolved (7) HTN (hypertension): Status: Chronic Qualifiers: Hypertension type: essential hypertension Qualified Code(s): I10 - Essential (primary) hypertension Additional A&P Information Continue home amlodipine and lisinopril for blood pressure Nicotine patch if needed Supportive care otherwise Full code Plans were discussed with the patient and she was given an opportunity to ask questions Anticipated disposition home Attestations Medical Necessity Statement*: Requires continued hospitalization due to acute respiratory failure, secondary COPD, pulmonary embolism Coding Level of Care Code Acute Baggagemaster for [facility] Fwd Diagnoses Acute respiratory failure J96.00 Left leg DVT I82.402 Pulmonary embolism I26.93 Pulmonary embolism type: single subsegmental (without acute cor pulmonale) Acute exacerbation of chronic obstructive airways disease J44.1 History of total right hip arthroplasty Z96.641 Primary localized osteoarthritis of right hip M16.11 HTN (hypertension) I10 Hypertension type: essential hypertension
[2020-06-07] MEDS: FUROsemide 10 mg/mL SDV 4mL 40 MG IVP (14:40)
[2020-06-08] VITALS (12 sets, daily range): BP systolic 114–146; BP diastolic 72–90; PULSE 63–102; RESP 16–23; TEMP 36.4–36.8; O2SAT 92–96
[2020-06-08] MEDS: ipratropium-albuterol 3 mL Neb INHALATION ×4 (02:17→19:59)
[2020-06-08 05:44] LABS: Basophils % 0.3 %; Hematocrit 48.8 % (37.0-47.0); Hemoglobin 15.6 g/dL (11.5-15.3); Lymphocytes # 0.8 10^3/uL (0.8-4.8); Lymphocytes % 7.6 %; Mean Corpuscular Hemoglobin 31.1 pg (28.0-34.0); Mean Corpuscular Volume 97.2 fL (81-99); Mean Platelet Volume 10.3 fL (7.4-10.4); Monocytes # 0.5 10^3/uL (0.2-0.9); Monocytes % 4.6 %; Neutrophils % 85.8 %; Nucleated Red Blood Cells % 0 %; Platelet Count 246 10^3/cmm (130-400); Red Blood Count 5.02 10^6/uL (4.1-5.3); Red Cell Distribution Width 12.8 % (12.1-15.1); White Blood Count 11.1 10^3/uL (4.0-10.0)
[2020-06-08 06:09] LABS: Alanine Aminotransferase 39 U/L (0-33); Albumin Level 4.2 g/dL (3.5-5.2); Alkaline Phosphatase 88 IU/L (35-105); Anion Gap 16.2 (5-19); Aspartate Amino Transferase 15 U/L (0-32); Blood Urea Nitrogen 28 mg/dL (6-20); Calcium 9.1 mg/dL (8.5-10.5); Carbon Dioxide 27 mmol/L (22-29); Chloride 100 mmol/L (98-107); Globulin 3.2 g/dL (1.3-4.6); Glomerular Filtration Rate 103.4 mL/min (90-130); Glucose 139 mg/dL (65-115); Magnesium 2.3 mg/dL (1.7-2.3); Osmolality Calculated 287 mOsm/kg (285-295); Potassium 4.2 mmol/L (3.5-5.1); Sodium 139 mmol/L (136-145); Total Bilirubin 0.2 mg/dL (0.15-1.2); Total Protein 7.4 g/dL (6.6-8.7)
[2020-06-08] MEDS: lisinopril 20 mg Tablet PO (08:20)
[2020-06-08] MEDS: doxycycline 100 mg Tablet PO (08:20)
[2020-06-08] MEDS: aspirin 81 mg EC Tablet PO (08:20)
[2020-06-08] MEDS: amlodipine 5 mg Tablet PO (08:20)
[2020-06-08] MEDS: apixaban 5 mg Tablet 10 MG PO ×2 (08:21→17:50)
--- NOTE | 2020-06-08 09:31 | XRR_ITS ---
PROCEDURE INFORMATION: Exam: XR Chest, 1 View Exam date and time: 06/08/2020 11:36 AM Age: 54 years old Clinical indication: Shortness of breath; Additional info: SOB TECHNIQUE: Imaging protocol: XR of the chest Views: 1 view. COMPARISON: CR XR chest 1V portable [id number] 06/02/2020 3:16 PM FINDINGS: Lungs: There are streaky opacities at the left lung base. Pleural space: Unremarkable. No pleural effusion. No pneumothorax. Heart/Mediastinum: Unremarkable. No cardiomegaly. Bones/joints: Unremarkable. XR/XR chest 1V portable [id number] IMPRESSION: Streaky opacities at the left lung base are nonspecific. Differential includes atelectasis and scarring. Pneumonia cannot be excluded.
[2020-06-08] MEDS: bisacodyl 5 mg Tablet 10 MG PO (12:13)
[2020-06-08] MEDS: FUROsemide 10 mg/mL SDV 4mL 40 MG IVP (12:14)
--- NOTE | 2020-06-08 12:21 | P.PN_ITS ---
Subjective Subjective: Interval history: This morning, patient had an episode of respiratory distress, when she woke up from sleep, required up to 3 L nasal cannula, improved with breathing treatments, she is currently doing well, she is ambulating well, still has an expiratory wheezing that has persisted, she is not sure exactly what happened this morning, afebrile, normotensive, no fevers, has a nonproductive cough Vitals/I&O/Wt Last Vital Signs Temp 98.2 F 06/08/20 11:22 Pulse 80 06/08/20 11:22 Resp 22 H 06/08/20 11:22 BP 135/72 06/08/20 11:22 Pulse Ox 96 06/08/20 11:22 06/07/20 06/08/20 06/08/20 22:59 06:59 14:59 Intake Total 240 / 960 350 / 1310 240 / 240 Output Total 1800 / 2000 660 / 2660 100 / 100 Balance -1560 / -1040 -310 / -1350 140 / 140 Physical Exam Const: COMMON NORMALS: no acute distress and patient oriented x3 GENERAL APPEARANCE: cooperative and comfortable HENMT: COMMON NORMALS: normocephalic HEAD & SCALP: normocephalic Eye: COMMON NORMALS: Equal, round and reactive pupils present, EOMs intact bilaterally and no papilledema GENERAL EYE: appearance normal, both eyes and all related structures PUPIL: Yes Equal, round and reactive pupils present DIRECT OPHTHALMOSCOPY: Yes no papilledema Neck/C-Spine: COMMON NORMALS: full ROM, no lymphadenopathy, no JVD and Thyroid normal THYROID: Thyroid normal Lymph: LYMPHATIC: no lymphadenopathy noted Resp: COMMON NORMALS: normal respiratory effort, No retractions and No use of accessory muscles AUSCULTATION: wheezes expiratory wheezes Cardio: COMMON NORMALS: no JVD, regular rate, regular rhythm, S1 normal heart sound present, S2 normal heart sound present, No gallops present (Cardio), No clicks present (Cardio) and No murmurs present (Cardio) RATE: regular rate RHYTHM: regular rhythm HEART SOUNDS: S1 normal heart sound present and S2 normal heart sound present GI: COMMON NORMALS: Normal to inspection, nondistended, normoactive bowel sounds present, Soft to palpation, non-tender and No hepatosplenomegaly present PALPATION: Yes Soft to palpation and Yes No hepatosplenomegaly present Extremity: COMMON NORMALS: normal to inspection, full ROM and no pedal edema Neuro: COMMON NORMALS: patient oriented x3, CN's II-XII intact bilaterally, moves all extremities and no focal motor deficits Psych: COMMON NORMALS: mental status grossly normal, Normal thought process present and cooperative THOUGHT PROCESS: Normal thought process present Data : 06/08/20 04:45 06/08/20 04:45 A&P Assessment and plan (1) Acute respiratory failure: Secondary to COPD exacerbation and right lower lobe superior segmental PE -Minor episode of respiratory distress this morning, improved with 3 L nasal cannula, breathing treatment -Currently on 2-3, still present today L nasal cannula -Still has an expiratory wheezing, has had a slow clinical progress -Chest x-ray shows streaky opacities at the left lung base which are nonspecific -Clinically she feels better -Continue oxygen therapy -Continue Solu-Medrol 40 mg every 12 hours -Continue nebulizer treatment, added budesonide -Stop doxycycline, add Levaquin -I will give her another 40 mg of Lasix today, she is -1870 mL's since admission -We will order a rapid COVID -Continue Eliquis -Advised smoking cessation -Monitor respiratory status closely -Echocardiogram shows EF of 60%, grade 1 out of 4 diastolic dysfunction, no regional wall motion abnormalities -Likely discharge in the next 24 hours Status: Acute (2) Left leg DVT: -Provoked DVT, left femoral vein extending to the popliteal and posterior tibial -From right total hip arthroplasty -Anticoagulation as above Status: Acute (3) Pulmonary embolism: -Small linear filling defect in the right lower lobe superior segmental pulmonary artery -Likely provoked, associated left lower extremity DVT, postoperative from hip arthroplasty Status: Acute Qualifiers: Pulmonary embolism type: single subsegmental (without acute cor pulmonale) Qualified Code(s): I26.93 - Single subsegmental pulmonary embolism without acute cor pulmonale (4) Acute exacerbation of chronic obstructive airways disease: Status: Acute (5) History of total right hip arthroplasty: Status: Acute (6) Primary localized osteoarthritis of right hip: Status: Resolved (7) HTN (hypertension): Status: Chronic Qualifiers: Hypertension type: essential hypertension Qualified Code(s): I10 - Essential (primary) hypertension Additional A&P Information Continue home amlodipine and lisinopril for blood pressure Nicotine patch if needed Supportive care otherwise Full code Plans were discussed with the patient and she was given an opportunity to ask questions Anticipated disposition home Attestations Medical Necessity Statement*: Patient requires hospitalization, for acute respiratory failure secondary to COPD, pulmonary embolism Coding Level of Care Code Acute Pet Training Instructor for Chg Fwd Diagnoses Acute respiratory failure J96.00 Left leg DVT I82.402 Pulmonary embolism I26.93 Pulmonary embolism type: single subsegmental (without acute cor pulmonale) Acute exacerbation of chronic obstructive airways disease J44.1 History of total right hip arthroplasty Z96.641 Primary localized osteoarthritis of right hip M16.11 HTN (hypertension) I10 Hypertension type: essential hypertension
[2020-06-08 13:20] LABS: SARS Covid-2 Antigen Negative (Negative)
[2020-06-08] MEDS: levoFLOXacin 750 mg Tablet PO (13:38)
[2020-06-08] MEDS: acetaminophen 325 mg Tablet 650 MG PO (17:53)
--- NOTE | 2020-06-08 18:37 | PC.NURSE ---
Summary pt is feeling better she said. This morning pt woke up feeling like she couldnt breathe. I talked with dr escoto regarding this. Very pleasant pt. Pt took shower this morning.
[2020-06-08] MEDS: budesonide 0.5 mg/2 mL Neb INHALATION (19:58)
[2020-06-09] VITALS (15 sets, daily range): BP systolic 98–130; BP diastolic 67–86; PULSE 71–107; RESP 16–18; TEMP 36.3–36.9; O2SAT 90–96
[2020-06-09] MEDS: ipratropium-albuterol 3 mL Neb INHALATION ×3 (02:27→14:19)
[2020-06-09 03:46] LABS: Basophils % 0.2 %; Eosinophils % 0.1 %; Hematocrit 48.6 % (37.0-47.0); Hemoglobin 15.4 g/dL (11.5-15.3); Lymphocytes # 0.9 10^3/uL (0.8-4.8); Lymphocytes % 7.6 %; Mean Corpuscular HGB Conc 31.7 g/dL (30.0-36.0); Mean Corpuscular Hemoglobin 30.9 pg (28.0-34.0); Mean Corpuscular Volume 97.6 fL (81-99); Mean Platelet Volume 10.3 fL (7.4-10.4); Monocytes # 0.6 10^3/uL (0.2-0.9); Monocytes % 5.6 %; Neutrophils # 9.73 10^3/uL (1.8-7.7); Neutrophils % 84.3 %; Nucleated Red Blood Cells % 0 %; Platelet Count 282 10^3/cmm (130-400); Red Blood Count 4.98 10^6/uL (4.1-5.3); White Blood Count 11.5 10^3/uL (4.0-10.0)
[2020-06-09 04:07] LABS: Alanine Aminotransferase 32 U/L (0-33); Albumin Level 4.1 g/dL (3.5-5.2); Alkaline Phosphatase 85 IU/L (35-105); Aspartate Amino Transferase 13 U/L (0-32); Blood Urea Nitrogen 32 mg/dL (6-20); Calcium 9.1 mg/dL (8.5-10.5); Carbon Dioxide 28 mmol/L (22-29); Chloride 100 mmol/L (98-107); Globulin 2.7 g/dL (1.3-4.6); Glomerular Filtration Rate 86.6 mL/min (90-130); Glucose 162 mg/dL (65-115); Magnesium 2.4 mg/dL (1.7-2.3); Osmolality Calculated 291 mOsm/kg (285-295); Phosphorus 5.2 mg/dL (2.5-4.5); Sodium 140 mmol/L (136-145); Total Bilirubin 0.2 mg/dL (0.15-1.2); Total Protein 6.8 g/dL (6.6-8.7)
[2020-06-09 04:09] LABS: Anion Gap 16.2 (5-19); Potassium 4.2 mmol/L (3.5-5.1)
[2020-06-09] MEDS: calcium carbonate 500 mg Chew Tablet 1000 MG PO (07:24)
[2020-06-09] MEDS: budesonide 0.5 mg/2 mL Neb INHALATION ×2 (08:29→19:46)
[2020-06-09] MEDS: amlodipine 5 mg Tablet PO (08:50)
[2020-06-09] MEDS: apixaban 5 mg Tablet 10 MG PO ×2 (08:50→17:32)
[2020-06-09] MEDS: aspirin 81 mg EC Tablet PO (08:50)
[2020-06-09] MEDS: lisinopril 20 mg Tablet PO (08:50)
[2020-06-09] MEDS: levoFLOXacin 750 mg Tablet PO (13:19)
--- NOTE | 2020-06-09 16:22 | PM.PN ---
Subjective Subjective: Interval history: feels better this morning,still with inspiratory wheezing but better Medications: Reviewed: Yes Vitals/I&O/Wt Last Vital Signs Temp 98.5 F 06/09/20 15:17 Pulse 90 06/09/20 15:17 Resp 17 06/09/20 15:17 BP 118/78 06/09/20 15:17 Pulse Ox 94 06/09/20 15:17 06/09/20 06/09/20 06/09/20 06:59 14:59 22:59 Intake Total 600 / 600 Balance 600 / 600 Physical Exam Narrative: EXAM NARRATIVE: GEN: Awake, alert and oriented, no acute distress CVS: S1S2 N RS: B/L scattered wheezing+ Abd: Soft, nt/nd , bs+ BOILER RELINER: no focal neuro deficits Data : 06/09/20 03:28 06/09/20 03:28 Micro: Microbiology 06/09/20 07:17 Gram Stain - Final Sputum - Expectorated Sputum A&P Assessment and plan (1) Acute respiratory failure: - Secondary to COPD exacerbation and right lower lobe superior segmental PE -Likely contributed by underlying COPD, patient states being diagnosed with it about one year ago. -Currently on 2-3, still present today on nasal cannula, home 02 eval -Still has an expiratory wheezing, has had a slow clinical progress -Chest x-ray shows streaky opacities at the left lung base which are nonspecific -Continue oxygen therapy -Reduce Solu-Medrol 40 mg every 24 hours -Continue nebulizer treatment with duoneb and budesonide - d/c abx on discharge --rapid covid screen negative -Continue Eliquis for PE -Advised smoking cessation -Monitor respiratory status closely -Echocardiogram shows EF of 60%, grade 1 out of 4 diastolic dysfunction, no regional wall motion abnormalities -Likely discharge in the next 24 hours Status: Acute (2) Left leg DVT: -Provoked DVT, left femoral vein extending to the popliteal and posterior tibial -From right total hip arthroplasty -Anticoagulation as above Status: Acute (3) Pulmonary embolism: -Small linear filling defect in the right lower lobe superior segmental pulmonary artery -Likely provoked, associated left lower extremity DVT, postoperative from hip arthroplasty Status: Acute Qualifiers: Pulmonary embolism type: single subsegmental (without acute cor pulmonale) Qualified Code(s): I26.93 - Single subsegmental pulmonary embolism without acute cor pulmonale (4) Acute exacerbation of chronic obstructive airways disease: Status: Acute (5) History of total right hip arthroplasty: Status: Acute (6) Primary localized osteoarthritis of right hip: Status: Resolved (7) HTN (hypertension): Status: Chronic Qualifiers: Hypertension type: essential hypertension Qualified Code(s): I10 - Essential (primary) hypertension Additional A&P Information Continue home amlodipine and lisinopril for blood pressure Nicotine patch if needed Supportive care otherwise Full code Plans were discussed with the patient and she was given an opportunity to ask questions Anticipated disposition home Attestations Medical Necessity Statement*: awaiting optimization of respiratory status prior to discharge Coding Level of Care Code Acute Databases Software Consultant for [facility] Fwd Diagnoses Acute respiratory failure J96.00 Left leg DVT I82.402 Pulmonary embolism I26.93 Pulmonary embolism type: single subsegmental (without acute cor pulmonale) Acute exacerbation of chronic obstructive airways disease J44.1 History of total right hip arthroplasty Z96.641 Primary localized osteoarthritis of right hip M16.11 HTN (hypertension) I10 Hypertension type: essential hypertension
[2020-06-10] VITALS (10 sets, daily range): BP systolic 122–130; BP diastolic 68–79; PULSE 62–92; RESP 16–20; TEMP 36.6–36.8; O2SAT 93–96
[2020-06-10] MEDS: ipratropium-albuterol 3 mL Neb INHALATION ×4 (03:07→13:37)
[2020-06-10 05:01] LABS: Basophils % 0.3 %; Eosinophils % 0.2 %; Hematocrit 45.9 % (37.0-47.0); Hemoglobin 14.1 g/dL (11.5-15.3); Lymphocytes # 1.7 10^3/uL (0.8-4.8); Lymphocytes % 15.8 %; Mean Corpuscular HGB Conc 30.7 g/dL (30.0-36.0); Mean Corpuscular Hemoglobin 30.7 pg (28.0-34.0); Monocytes # 1.2 10^3/uL (0.2-0.9); Monocytes % 10.9 %; Neutrophils # 7.55 10^3/uL (1.8-7.7); Neutrophils % 70.7 %; Nucleated Red Blood Cells % 0 %; Platelet Count 251 10^3/cmm (130-400); Red Blood Count 4.59 10^6/uL (4.1-5.3); Red Cell Distribution Width 13.1 % (12.1-15.1); White Blood Count 10.7 10^3/uL (4.0-10.0)
[2020-06-10 05:22] LABS: Alanine Aminotransferase 32 U/L (0-33); Albumin Level 3.6 g/dL (3.5-5.2); Alkaline Phosphatase 72 IU/L (35-105); Anion Gap 14.9 (5-19); Aspartate Amino Transferase 14 U/L (0-32); Blood Urea Nitrogen 29 mg/dL (6-20); Calcium 8.6 mg/dL (8.5-10.5); Carbon Dioxide 22 mmol/L (22-29); Chloride 107 mmol/L (98-107); Globulin 2.4 g/dL (1.3-4.6); Glomerular Filtration Rate 86.6 mL/min (90-130); Glucose 95 mg/dL (65-115); Osmolality Calculated 287 mOsm/kg (285-295); Potassium 3.9 mmol/L (3.5-5.1); Sodium 140 mmol/L (136-145); Total Bilirubin 0.2 mg/dL (0.15-1.2)
[2020-06-10] MEDS: budesonide 0.5 mg/2 mL Neb INHALATION (08:03)
[2020-06-10] MEDS: amlodipine 5 mg Tablet PO (08:29)
[2020-06-10] MEDS: apixaban 5 mg Tablet 10 MG PO (08:29)
[2020-06-10] MEDS: aspirin 81 mg EC Tablet PO (08:29)
[2020-06-10] MEDS: lisinopril 20 mg Tablet PO (08:29)
[2020-06-10] MEDS: acetaminophen 325 mg Tablet 650 MG PO (08:33)
--- NOTE | 2020-06-10 12:48 | PC.SOCIAL ---
Patient was given the IMM yesterday 06/09/2020. Copy was placed in the chart.
--- NOTE | 2020-06-10 14:04 | PM.DCS ---
Discharge Providers Date of Admission: 06/02/20 18:27 Date of Discharge: June 10, 2020 Attending Provider at Admission: Tay Jay Attending Provider at Discharge: Isabella Pope MD Primary Care Provider: ELAINE Villanueva Diagnoses at Discharge Discharge Diagnosis (1) Acute respiratory failure: Status: Acute (2) Left leg DVT: Status: Acute (3) Pulmonary embolism: Status: Acute Qualifiers: Pulmonary embolism type: single subsegmental (without acute cor pulmonale) Qualified Code(s): I26.93 - Single subsegmental pulmonary embolism without acute cor pulmonale (4) Acute exacerbation of chronic obstructive airways disease: Status: Acute (5) History of total right hip arthroplasty: Status: Acute Problem details: Dr Wood (6) Primary localized osteoarthritis of right hip: Status: Resolved (7) HTN (hypertension): Status: Chronic Qualifiers: Hypertension type: essential hypertension Qualified Code(s): I10 - Essential (primary) hypertension Reason for Visit Reason for Visit: cant breath Hospital Course Discharge Summary: Amber Ventura is a 54 year old female with history of COPD who presented to the emergency room with a history of difficulty breathing.She has had wheezing and intermittent cough without any productive sputum. She continues to smoke about a third of a pack of cigarettes a day. Work-up in the emergency room included a CTA of the chest. This ended up demonstrating a small linear filling defect in the right lower lobe superior segmental pulmonary artery consistent with a PE of uncertain age. Patient had hip arthroplasty on the right and on March 11 of this year. She has a history of a DVT 3 to 4 years ago in the left lower extremity. She states she has continued to have intermittent issues with swelling in the left lower extremity including recently. Ultrasound of the left lower extremity with evidence of occlusive deep vein thrombosis in the left superficial femoral vein extending to the posterior tibials. During course of admission she has slowly improved, with noted marked expiratory wheezing. She needed 2-3lpm of supplemental 02, slowly titrated off last evening. Home 02 eval did not qualify her fir supplemental 02 as of last evening. She remains on RA this morning. In part, it appears slow improvement in respiratory status was contributed by COPD exacerbation. She received nebulization with duoneb and budesonide during hospital stay and is being discharged on LABA and LAMA. prior to current admission she had been on albuterol inhaler prn only. Empirically also received doxycycline, then levaquin which is being disconinued on d/c. Had methylprednisoneiv during admission, now stopped on discharge since clinically improved. Rapid Covid ag negative. Echocardiogram shows EF of 60%, grade 1 out of 4 diastolic dysfunction, no regional wall motion abnormalities Physical Exam Narrative: EXAM NARRATIVE: GEN: Awake, alert and oriented, no acute distress CVS: S1S2 N RS: B?l scattered wheezing+ Abd: Soft, nt/nd , bs+ SENIOR RECRUITER: no focal neuro deficits Discharge Data Data Completed and Pending: Completed Studies During Hospitalization Category Date Time Status CT angio chest PE protcl [id number] Urge nt Cat Scan 06/02/20 16:36 Completed XR chest 1V elizabeth ble [id number] Stat Exams 06/08/20 09:31 Completed XR chest 1V elizabeth ble [id number] Urgent Exams 06/02/20 15:15 Completed CV echo complete* [id number] Routine Ultrasound 06/03/20 10:05 [place] [id number] Routin e Ultrasound 06/03/20 03:17 Completed Pending at discharge Category Date Time Status Sputum Culture an d Gram Stain Stat Lab 06/09/20 07:17 Results Labs from last 24 hours 06/10/20 06/10/20 04:21 04:21 WBC 10.7 H RBC 4.59 Hgb 14.1 Hct 45.9 MCV 100.0 H MCH 30.7 MCHC 30.7 RDW 13.1 Plt Count 251 MPV 10.0 Neut % (Auto) 70.7 Lymph % (Auto) 15.8 Castro % (Auto) 10.9 Eos % (Auto) 0.2 Baso % (Auto) 0.3 Neut # (Auto) 7.55 Lymph # (Auto) 1.7 Castro # (Auto) 1.2 H Eos # (Auto) 0.0 Baso # (Auto) 0.0 Nucleated RBC % (a uto) 0 Nucleated RBCs # 0.0 Sodium 140 Potassium 3.9 Chloride 107 Carbon Dioxide 22 Anion Gap 14.9 BUN 29 H Creatinine 0.7 GFR Calculation 86.6 L Glucose 95 Calculated Osmolal ity 287 Calcium 8.6 Total Bilirubin 0.2 AST 14 ALT 32 Alkaline Phosphata se 72 Total Protein 6.0 L Albumin 3.6 Globulin 2.4 Vitals: Last Vital Signs Temp 98.2 F 06/10/20 11:35 Pulse 84 06/10/20 13:36 Resp 18 06/10/20 13:36 BP 122/68 06/10/20 11:35 Pulse Ox 93 06/10/20 13:36 Discharge Plan Discharge Patient Disposition: Home Health Service Condition: Stable Prescriptions: New Spiriva Respimat 2.5 mcg/actuation mist 2 inh INHALATION Q24H Qty: 4 RF: 1 fluticasone propion-salmeterol 250-50 mcg/dose blister with device 1 inh INHALATION BID Qty: 60 RF: 0 Eliquis 5 mg tablet 5 mg PO BID 30 Days Qty: 60 RF: 1 albuterol sulfate 90 mcg/actuation HFA aerosol inhaler 1 inh INHALATION Q6H PRN (Reason: shortness of breath or wheezing) Qty: 6.7 RF: 1 Continued aspirin [Adult Low Dose Aspirin] 81 mg tablet,delayed release (DR/EC) 81 mg PO DAILY RF: 0 Hold Instructions: Resume on 04/02/20. Resume when off full strength aspirin lisinopril 20 mg tablet 20 mg PO DAILY RF: 0 amlodipine 5 mg tablet 5 mg PO DAILY RF: 0 multivitamin [Multiple Vitamins] Tablet 1 tab PO DAILY RF: 0 tramadol 50 mg tablet 50 mg PO Q6H PRN (Reason: Pain) Qty: 30 RF: 0 Discharge Orders: Discharge Order (Routine); Ordered 06/10/20 Ordered By: Isabella Pope Referrals: [facility] [Outside] Salazar,ELAINE Lentz [Primary Care Provider] - Discharge Diet: Usual diet Discharge Activity: Resume usual activity Discharge Attestations Time Spent in Discharge Care*: greater than 30 min Quality Metrics Clinical Quality Measures During this hospital stay, did patient experience: VTE Contraindication to Overlap Therapy: Overlap treatment not indicated VTE Discharge Education: Education about anticoagulant therapy/Care Notes given Deep Vein Thrombosis/Pulmonary Embolism Present on Admission: Yes Coding Level of Care Code Acute Appliance Service Supervisor for Chg Fwd Diagnoses Acute respiratory failure J96.00 Left leg DVT I82.402 Pulmonary embolism I26.93 Pulmonary embolism type: single subsegmental (without acute cor pulmonale) Acute exacerbation of chronic obstructive airways disease J44.1 History of total right hip arthroplasty Z96.641 Primary localized osteoarthritis of right hip M16.11 HTN (hypertension) I10 Hypertension type: essential hypertension
[2020-06-10] MEDS: levoFLOXacin 750 mg Tablet PO (14:22)
== END 2020-06-10 17:00 | disposition home health service (06) | DRG 175 ==
LOC: ER 18:29 → MEDSURG 18:56
PROVIDERS: Family Medicine; Hospitalist; Admitting Provider Internal Medicine; Emergency Provider Emergency Medicine; PCP Nurse Practitioner Family; Visit Provider Student in an Organized Health Care Education/Training Program
DX: I26.93 Single subsegmental thrombotic pulmonary embolism without acute cor pulmonale (principal); J96.00 Acute respiratory failure, unspecified whether with hypoxia or hypercapnia; I82.412 Acute embolism and thrombosis of left femoral vein; J44.1 Chronic obstructive pulmonary disease with (acute) exacerbation; I82.432 Acute embolism and thrombosis of left popliteal vein; I82.442 Acute embolism and thrombosis of left tibial vein; F17.210 Nicotine dependence, cigarettes, uncomplicated; Z96.641 Presence of right artificial hip joint; K57.30 Diverticulosis of large intestine without perforation or abscess without bleeding; I10 Essential (primary) hypertension; Z98.1 Arthrodesis status; Z79.82 Long term (current) use of aspirin; Z79.891 Long term (current) use of opiate analgesic
CPT/HCPCS: 12345; 36415; 36600; 71045; 71275; 80048; 80053; 82803; 83735; 83880; 84100; 85025; 87070; 87205; 87426; 93005; 93306; 93970; 94640; 94664; 96372; 96375; 97110; 97116; 97161; 99283; J1650; J1885; J1940; J2270; J2920; J2930; J3475; J7512; J7611; J7626; Q9967

== ENCOUNTER → 2020-07-28 08:23 | Outpatient (BNVA) | payer MEDICARE, SELFPAY | PROVIDERS: PCP Nurse Practitioner Family; Visit Provider Specialist | DX: Z47.1 Aftercare following joint replacement surgery (principal); Z96.641 Presence of right artificial hip joint | CPT/HCPCS: 73502 ==

== ENCOUNTER 2020-10-02 06:54 | Outpatient (CLI) | payer MEDICARE, SELFPAY ==
--- NOTE | 2020-10-02 06:59 | USCV_ITS ---
Amber Ventura Age: 54 Gender: F : 1965 Exam Date: 10/02/2020 07:03 Ordering Phys: Mary Carmen Salazar DETECTIVE HOMICIDE SQUAD Technologist: Beulha Miller Exam Location: [facility] [place] Indication: DVT HISTORY: PULM EMB AND LT DVT IN MAY. ON ELOQUIS PROCEDURES: Venous duplex imaging was performed in only the left lower extremity. The following venous structures were evaluated: common femoral vein, profunda vein, proximal portion of the greater saphenous vein, superficial femoral vein, and the popliteal vein. In addition, the posterior tibial and peroneal trunk were evaluated. FINDINGS: Normal 2-D Doppler and augmentation and compressibility throughout the lower extremity venous structures. Additional imaging through the proximal calf veins also reveals no thrombus. Limited evaluation of the greater saphenous vein is patent with no thrombus.. FEMORAL VEIN IN THIGH APPEAR SMALL-HX DVT IN THIS AREA BUT ARE PATENT-the mid and distal segment of the femoral vein was found to have thick cuello CONCLUSIONS No evidence of DVT in the above-mentioned identifiable veins. Features of possible old DVT with recanalization in the mid and distal segment of the femoral vein Dr Sun Lopez MD [facility] (Electronically Signed) Final Date: 03 October 2020 19:19 S
== END 2020-10-02 06:55 | disposition home or self-care (01) ==
LOC: RAD 06:56
PROVIDERS: PCP Nurse Practitioner Family; Visit Provider Nurse Practitioner Family
DX: I82.402 Acute embolism and thrombosis of unspecified deep veins of left lower extremity (principal)
CPT/HCPCS: 93971

== ENCOUNTER → 2020-10-27 10:33 | Outpatient (BNVA) | payer MEDICARE, SELFPAY | PROVIDERS: PCP Nurse Practitioner Family; Visit Provider Internal Medicine Pulmonary Disease | DX: J96.00 Acute respiratory failure, unspecified whether with hypoxia or hypercapnia (principal) | CPT/HCPCS: 87635 ==

== ENCOUNTER 2020-10-30 07:44 | Outpatient (CLI) | payer MEDICARE, SELFPAY ==
[2020-10-30 12:02] VITALS: O2SAT 94; O2SAT 96
--- NOTE | 2020-10-30 12:27 | PFTS_ITS ---
Date of Study:10/30/20 Date of Dictation: MECHANICS: Forced vital capacity (FVC) is reduced. Forced expiratory volume in one second (FEV1) is moderately reduced. FEV1/FVC is low normal.73 No significant response to bronchodilators FLOW VOLUME LOOP: scooping of end expiratory limb suggestive of small airway obstruction. . LUNG VOLUMES: Total lung capacity (TLC) is normal. Residual volume (RV) is normal. DIFFUSING CAPACITY FOR CARBON MONOXIDE: Normal . INTERPRETATION: The spirometry and FV loop suggestive of obstructve ventilatory defect. Normal lung volumes and gas transfer. Correlate clinically. MTDD
== END 2020-10-30 07:45 | disposition home or self-care (01) ==
LOC: RT 07:49
PROVIDERS: PCP Nurse Practitioner Family; Visit Provider Internal Medicine Pulmonary Disease
DX: J44.9 Chronic obstructive pulmonary disease, unspecified (principal)
CPT/HCPCS: 94060; 94726; 94729; J7611

== ENCOUNTER 2021-02-04 10:43 | Outpatient (CLI) | payer MEDICARE, SELFPAY ==
--- NOTE | 2021-02-04 11:05 | CT_ITS ---
WS: [id number] CT NECK TECHNIQUE: Contrast-enhanced CT of the neck with coronal and sagittal reformatted images. CLINICAL INFORMATION: Progressive hoarseness and laryngeal and subglottic mass COMPARISON: None. DLP: 2401.[address] scans at [facility] use at least one of these dose optimization techniques: automat ed exposure control; mA and/or kV adjustment per patient size (includes targeted exams where dose is matched to clinical indication); or iterative reconstruction. FINDINGS: Parotid glands are normal. Normal submandibular glands. Tongue base is normal in appearance. Normal p arapharyngeal fat. Normal epiglottis and vallecula. Normal piriform sinuses. No evidence of supraglot tic or glottic mass. Subglottic airway is normal. Normal thyroid gland. Lung apices are well aerated. Paranasal sinuses and mastoid air cells well aerated. No cervical lymph adenopathy. Moderate spondylitic changes cervical spine. CT/CT neck w con* [id number] IMPRESSION: 1. No evidence of supraglottic or glottic mass. 2. Normal salivary glands. 3. No cervical lymphadenopathy. 4. No acute neck findings.
[2021-02-04] MEDS: iohexol 300 mg/mL 100 mL Btl IV (11:29)
== END 2021-02-04 10:44 | disposition home or self-care (01) ==
LOC: RADWPI 10:51
PROVIDERS: PCP Nurse Practitioner Family; Visit Provider Otolaryngology
DX: M54.2 Cervicalgia (principal); R13.10 Dysphagia, unspecified; R49.0 Dysphonia
CPT/HCPCS: 70491; Q9967

== ENCOUNTER → 2021-02-11 08:17 | Outpatient (BNVA) | payer MEDICARE, SELFPAY | PROVIDERS: PCP Nurse Practitioner Family; Visit Provider Otolaryngology | DX: Z01.818 Encounter for other preprocedural examination (principal); R13.10 Dysphagia, unspecified | CPT/HCPCS: 87635 ==

== ENCOUNTER 2021-02-18 07:03 | Day surgery (SDC) | payer MEDICARE, SELFPAY ==
[2021-02-18] VITALS (8 sets, daily range): BP systolic 141–159; BP diastolic 85–101; PULSE 68–94; RESP 15–21; TEMP 36.1–36.4; O2SAT 90–100; BMI 31.8
[2021-02-18] MEDS: sodium chloride 0.9% 1,000 ML 30 ML IV (07:30)
--- NOTE | 2021-02-18 08:28 | ANES.PREANE2 ---
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 Proposed Procedure: Operation Date: 02/18/21 08:40 Proposed Procedures p Direct Laryngoscopy with vocal cord stripping 26930 R13.10(Not Applicable) - Choco Ponce MD Familial anesthetic complications: None Was Beta Raul taken within 24 hours: N/A Was Clonidine taken within 24 hours: N/A Last intake: Intake Last Liquid Date 02/17/21 Last Liquid Time 23:30 Last Solid Date 02/17/21 Last Solid Time 18:00 Social: Social History: No alcohol and No tobacco Comment: former smoker Exam: Pre-Anes Outpt Exam: alert, oriented x 3, clear to auscultation bilaterally and regular rate & rhythm Airway: Cervical ROM: WNL MP: 3 Dentition: False Pulmonary: Pulmonary: COPD Comments: hx PE CV/HEM: CV/HEM: DVT and HTN Anesthetic Plan: ASA status: 3 Anesthesia: General Risk of > 500 ml blood loss (7ml/kg in children): No PFSH Anesthesia PFSH: Medical History Avascular necrosis of bone COPD (chronic obstructive pulmonary disease) Diverticulosis large intestine w/o perforation or abscess w/bleeding HTN (hypertension) Hx of deep venous thrombosis (~2015) Left lower extremity, not associated with surgery per patient, treated with Eliquis x6 months Surgical History History of History of lumbar fusion History of total right hip arthroplasty (03/11/20) Family History Denies family history of CAD (coronary artery disease) Clotting disorder Bleeding disorder Social History Smoking and tobacco status: former smoker Quit status (tobacco): has quit using tobacco Year quit tobacco: 2019 - Hx of 1PPD x 40 Second hand smoke exposure: No Smoking risk assessment/counseling performed?: Yes Alcohol intake: former Lives independently: Yes Household members: children Housing: House Marital status: / Current occupational status: employed Pets and animals: Yes History of recent travel: No Current gender identity: Female Special arlene needs: No Additional social history: Has used THC in the past but denies currently Data Anesthesia Cardiac Studies: No Data to Display
[2021-02-18] MEDS: EPINEPHrine 1 mg/mL INJ XX (10:00)
--- NOTE | 2021-02-18 10:15 | PM.OP ---
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 Procedure Done: Microscopic suspension laryngoscopy with bilateral true vocal cord stripping for biopsy Specimens removed/disposition: Bilateral true vocal cord biopsy specimens Surgeon: Choco Ponce Anesthesia: General Estimated blood loss (mL): 5 Complications: No complications Findings: Both vocal cords showed erythema and leukoplakia involving the superior medial and inferior surfaces leading into the subglottic area. These areas were irregular and not smooth. Condition: stable Disposition: PACU Brief History: 55-year-old female patient developed hoarseness with near complete loss of voice and on flexible laryngoscopy was noted to have significant irregularity of both vocal cords. There was erythema as well as leukoplakic changes. The surfaces were very irregular. There was no weakness or paralysis however. The patient therefore is being brought to the operating room to undergo direct suspension microscopic laryngoscopy with biopsy of both vocal cords. Rather than small biopsies I expect to do stripping to get an appropriate sampling of the entire involved areas. The procedure its risks and complications were explained in detail to the patient in the office setting. These risks included bleeding infection numbness scarring swelling bruising hoarseness which could persist or worsen. Potential postoperative chances of needing additional treatment should there be any malignancy identified. Also she must be on strict voice rest after the surgery otherwise risks of developing nodules or polyps will be high. With these things understood and risks associated with anesthesia also understood informed consent was granted and witnessed. Procedure: 1 the patient was placed on the operating table in supine position. Adequate general endotracheal tube anesthesia was obtained. The patient received Ancef IV for prophylaxis. The table was rotated 90 degrees. The head was dropped 15 degrees to the horizontal. The eyes were taped shut and head drape was applied in usual fashion. A timeout was accomplished identifying the patient date of plan procedure allergies fire risk and medications given. With all in agreement the procedure continued. A tooth guard was placed over the upper gingiva as the patient was edentulous. K-Y jelly was applied to the lips and the tooth guard. An anterior commissure operating laryngoscope was inserted and examination of the larynx and hypopharynx was accomplished. All was normal with the exception of the true vocal cords themselves. The scope was positioned and was suspended from the Hubbard stand. Microscope with a 400 lens was brought in for visualization. With proper positioning and the entire larynx and good visualization a left biting cup forcep was used to attain the left vocal cord biopsy. This began just posterior to the anterior commissure and stripped of the medial aspect was taken down to the arytenoid. A few small pieces were also taken adjacent to the arytenoid. Once the left side was biopsied a similar procedure was performed to remove the right side biopsy. Then suctioning was accomplished. To cottonoids soaked in 1-1000 epinephrine were applied to the surgical sites. These were left in place for a few minutes. These were then removed. Suctioning was accomplished again. Then in LTA with 1-100,000 lidocaine was utilized to distribute 3 mL to the larynx and subglottic area. Excess was then suctioned after few minutes. The patient tolerated the procedure well and estimated blood loss of 5 mL and was taken to recovery in stable condition. Specimens were forwarded to pathology for permanent section only.
[2021-02-18] MEDS: TRAMadol 50 mg Tablet PO (11:24)
--- NOTE | 2021-02-18 13:25 | ANE.PACU2 ---
Inpatient post-anesthesia follow up: Airway intact: Yes Vital signs: Temperature 97.6 F Pulse Rate 68 Respiratory Rate 18 Blood Pressure 154/95 Pulse Oximetry 90 Oxygen Delivery Me thod Room Air Oxygen Flow Rate 8 Fraction of Inspir ed Oxygen Hydration adequate: Yes Nausea and vomiting: No Pain level: 1 Mental status: Baseline
--- NOTE | 2021-02-19 14:49 | W.PM.OPSUD ---
Surgery/Procedure H&P Update DATE OF PROCEDURE: February 19, 2021 DATE H&P PERFORMED: 02/12/20 H&P UPDATE INFORMATION: I have reviewed H&P completed within last 30 days, I have examined patient prior to procedure and No changes to prior documentation CHANGES TO PREVIOUS DOCUMENTATION: None PREOP DIAGNOSIS: Hoarseness with bilateral true vocal cord changes PLANNED PROCEDURE: Operation Date: 02/18/21 08:40 Proposed Procedures p Direct Laryngoscopy with vocal cord stripping 89454 R13.10(Not Applicable) - Choco Ponce MD
== END 2021-02-18 11:40 | disposition home or self-care (01) ==
PROVIDERS: PCP Nurse Practitioner Family; Visit Provider Otolaryngology
PROC: 0CJS8ZZ Inspection of Larynx, Via Natural or Artificial Opening Endoscopic (ICD-10-PCS; CPT 31541; principal; 2021-02-18 08:30)
DX: R49.0 Dysphonia (principal); J38.3 Other diseases of vocal cords; J44.9 Chronic obstructive pulmonary disease, unspecified; Z86.711 Personal history of pulmonary embolism; I10 Essential (primary) hypertension; Z86.718 Personal history of other venous thrombosis and embolism; Z87.891 Personal history of nicotine dependence
CPT/HCPCS: 31541; 88305; J0171; J0690; J1100; J2704; J2710; J3010; J3490; J7030

== ENCOUNTER 2021-07-06 08:49 | Emergency (ER) | payer MEDICARE, SELFPAY ==
--- NOTE | 2021-07-06 08:51 | XR_ITS ---
WS: [id number] XR hip LT 2-3V wo/w pel* [id number] REASON FOR EXAM: pain FINDINGS: Severe narrowing of the femoral acetabular joint space with subchondral sclerosis and cystic change i n the subarticular acetabulum and femoral head. Osteophytosis of the femoral head. No fracture or dislocation noted. There appears to be a periosteal reaction, partially organized maurice g the femoral neck including the head and neck junction. XR/XR hip LT 2-3V wo/w pel* [id number] IMPRESSION: Relatively severe osteoarthritis which has progressed significantly compared to 02/07/2020. Periosteal reaction is also an interval development from the previous examinati on. Cause of the periosteal reaction is not evident. This is usually not associ ated with uncomplicated osteoarthritis. Possibly this is evidence of stress or other occult fracture with healing.
[2021-07-06 09:47] VITALS: BP 151/92; PULSE 71; RESP 18; TEMP 36.7; O2SAT 95; BMI 31.9
--- NOTE | 2021-07-06 10:03 | CT_ITS ---
WS: [id number] CT LEFT HIP, NONCONTRAST. HISTORY: severe pain, change Technique: All CT scans at [facility] [place] use at least one of these dose optimization techniques: automated exposure control; mA and/or kV adjustment per patient size (includes targeted exams where dose is matched to clinical indication); or iterative reconstruction. DLP: 2466.71 mGy.cm COMPARISON: LEFT hip radiograph 07/06/2021 Severe osteoarthritic changes at the hip joint. Joint space narrowing with osteophytic ridging and bragg bchondral cystic changes on both sides of the joint. There is bone upon bone contact involving the bragg perior lateral joint space. There is mild cortical thickening along the medial curvature of the femor al neck but no fracture. This may be a stress response. Pubic rami is intact. Visualized sacrum is no rmal with exception of air along the joint space. Atherosclerotic changes within the iliac arteries. CT/CT hip LT wo con* [id number] IMPRESSION: 1. No LEFT hip fracture. 2. Advanced degenerative changes at the LEFT hip joint.
--- NOTE | 2021-07-06 10:05 | W.ED.EXTPRO ---
HPI - Extremity Problem General: Chief complaint: Extremity Problem,Nontraumatic Stated complaint: Pain in Left Hip Time Seen by Provider: 07/06/21 08:51 History of Present Illness: HPI Narrative: Patient complains of severe left hip pain but not able to bear weight or walk easily. Patient states last night that she pushed on a basket that was full with her left foot and felt a sudden pop to her left hip and severe pain and went to lay down and has not been able to ambulate much since then. Patient has a known history severe osteoarthritis left hip has had hip replacement on the right hip. Complaint: joint pain Onset (ago): hour(s) Pain Consistency: constant Location: left and lower extremity Severity scale (1-10): 8 Quality: stabbing and aching Radiation: none Relieving factors: immobilization and rest Exacerbating factors: range of motion and weight bearing Associated symptoms: Reports arthralgias; Deny chest pain, fever(s) or rash Review of Systems Const: Denies: fever(s), chills or body aches Eyes: Denies: change in vision or blurry vision ENMT: Denies: throat pain or nasal congestion Card: Denies: chest pain or dyspnea on exertion Resp: Denies: dyspnea, productive cough or non-productive cough GI: Denies: abdominal pain, nausea or vomiting Musc: Reports: joint pain (Left hip); Denies: extremity pain Skin/Breast: Denies: rash Neuro: Denies: headache(s) Psych: Denies: anxiety or depression Nadeem/Lymph: Denies: easy bruising PFSH ED PFSH: Medical History Avascular necrosis of bone COPD (chronic obstructive pulmonary disease) Diverticulosis large intestine w/o perforation or abscess w/bleeding HTN (hypertension) Hx of deep venous thrombosis (~2015) Left lower extremity, not associated with surgery per patient, treated with Eliquis x6 months Surgical History History of History of lumbar fusion History of total right hip arthroplasty (03/11/20) Family History Denies family history of CAD (coronary artery disease) Clotting disorder Bleeding disorder Social History Smoking and tobacco status: former smoker Quit status (tobacco): has quit using tobacco Year quit tobacco: 2020 - Hx of 1PPD x 40 Second hand smoke exposure: No Smoking risk assessment/counseling performed?: Yes Alcohol intake: former Lives independently: Yes Household members: children Housing: House Marital status: / Current occupational status: employed Pets and animals: Yes History of recent travel: No Current gender identity: Female Special arlene needs: No Additional social history: Has used THC in the past but denies currently Physical Exam Const: COMMON NORMALS: no acute distress, average body habitus and patient oriented x3 HENMT: COMMON NORMALS: normocephalic HEAD & SCALP: normal to inspection and normocephalic FACE & SINUS: normal facial exam Eye: COMMON NORMALS: conjunctivae normal GENERAL EYE: appearance normal, both eyes and all related structures CONJUNCTIVA: Yes conjunctivae normal Neck/C-Spine: COMMON NORMALS: no JVD Chest: COMMONS NORMALS: normal inspection of the chest Resp: COMMON NORMALS: normal respiratory effort and clear to auscultation bilaterally AUSCULTATION: clear to auscultation bilaterally Cardio: COMMON NORMALS: no JVD, regular rate and regular rhythm RATE: regular rate RHYTHM: regular rhythm GI: COMMON NORMALS: Normal to inspection, nondistended, normoactive bowel sounds present Extremity: COMMON NORMALS: normal to inspection RIGHT LOWER EXTREMITY: Yes hip joint (Tender with range of motion) Neuro: COMMON NORMALS: patient oriented x3 Course Vital Signs: Vital signs: Vital Signs Temperature 98.1 F 07/06/21 09:47 Pulse Rate 71 07/06/21 09:47 Respiratory Rate 18 07/06/21 09:47 Blood Pressure 151/92 07/06/21 09:47 Pulse Oximetry 95 07/06/21 09:47 MDM - Extremity (Nontraumatic) MDM Narrative: Medical decision making narrative: Patient aware that she has severe left hip arthritis. She was told by orthopedic doctor that she needed left hip replacement. Patient states that she needs a note for being off work the next couple days. CT did not show any acute fracture x-ray did show advanced degenerative changes worsening since last years x-ray. Patient made aware of x-ray findings was encouraged follow-up orthopedic as soon as possible. Discharge Plan Discharge Patient Disposition: Home Clinical Impression: Arthritis of left hip Condition: Stable Prescriptions: New Celebrex 100 mg capsule 100 mg PO BID Qty: 20 RF: 0 No Action aspirin [Adult Low Dose Aspirin] 81 mg tablet,delayed release (DR/EC) 81 mg PO DAILY RF: 0 Hold Instructions: Resume on 04/02/20. Resume when off full strength aspirin ipratropium-albuterol 0.5 mg-3 mg(2.5 mg base)/3 mL solution for nebulization 3 ml inhalation QID PRN (Reason: sob) RF: 0 tramadol 50 mg tablet 50 mg PO Q6H PRN (Reason: pain) Qty: 30 RF: 0 lisinopril 20 mg tablet 20 mg PO DAILY RF: 0 amlodipine 5 mg tablet 5 mg PO DAILY RF: 0 multivitamin [Multiple Vitamins] Tablet 1 tab PO DAILY RF: 0 albuterol sulfate 90 mcg/actuation HFA aerosol inhaler 1 inh INHALATION Q6H PRN (Reason: shortness of breath or wheezing) Qty: 6.7 RF: 1 Eliquis 5 mg tablet 5 mg PO BID 30 Days Qty: 60 RF: 1 Discharge Orders: Discharge ED (Routine); Ordered 07/06/21 Ordered By: Kevin Mcintosh Referrals: Mary Carmen Salazar FNP [Primary Care Provider] - Discharge Diet: Usual diet Discharge Activity: Increase activity as tolerated Patient Instructions: Arthralgia (ED) Activity Restrictions/Additional Instructions: Follow-up with medical provider as directed. Take medications as prescribed. Return to the ER or your medical provider if condition worsens. Please read and understand discharge instructions. If any questions ask please. Follow-up with orthopedic doctor as soon as possible would be of benefit. Off work next couple days. 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
[2021-07-06] MEDS: CELEcoxib 200 mg Capsule 400 MG PO (10:13)
== END 2021-07-06 10:37 | disposition home or self-care (01) ==
PROVIDERS: Emergency Provider Nurse Practitioner Family; PCP Nurse Practitioner Family
DX: M16.12 Unilateral primary osteoarthritis, left hip (principal); Z79.82 Long term (current) use of aspirin; Z79.01 Long term (current) use of anticoagulants; J44.9 Chronic obstructive pulmonary disease, unspecified; I10 Essential (primary) hypertension; Z87.891 Personal history of nicotine dependence
CPT/HCPCS: 73502; 73700; 99282

== ENCOUNTER → 2021-09-28 09:12 | Outpatient (BNVA) | payer MEDICARE, SELFPAY | PROVIDERS: PCP Nurse Practitioner Family; Visit Provider Specialist | DX: M25.552 Pain in left hip (principal); M16.12 Unilateral primary osteoarthritis, left hip | CPT/HCPCS: 73502 ==

== ENCOUNTER 2021-10-18 13:43 | Emergency (ER) | payer MEDICARE, SELFPAY ==
[2021-10-18 14:12] VITALS: BP 132/86; PULSE 90; RESP 16; TEMP 36.8; O2SAT 93; BMI 31.9
--- NOTE | 2021-10-18 14:39 | W.ED.SOB ---
HPI - SOB/Dyspnea General: Chief Complaint: Shortness of Breath/Dyspnea Stated Complaint: SOB Time Seen by Provider: 10/18/21 14:37 History of Present Illness: HPI Narrative: Ms. Ventura is a 55-year-old lady with significant past medical history of COPD and DVT on anticoagulation who presents to the emergency department due to shortness of breath. Symptom onset was approximately 1 week ago and gradual. It was initially fairly mild however worse over the past 3 days. She has generalized aches and pains as well as nausea and dry heaves. She has had decreased p.o. intake. Overall the course of symptoms has been worsening. Intensity is moderate. Denies sick contacts. No other specific changes in health, exacerbating, relieving factors identified Review of Systems General: Reports: 10 or more systems reviewed and unremarkable except in HPI and below PFSH ED PFSH: Medical History Avascular necrosis of bone COPD (chronic obstructive pulmonary disease) Diverticulosis large intestine w/o perforation or abscess w/bleeding HTN (hypertension) Hx of deep venous thrombosis (~2015) Left lower extremity, not associated with surgery per patient, treated with Eliquis x6 months Surgical History History of History of lumbar fusion History of total right hip arthroplasty (03/11/20) Family History Denies family history of CAD (coronary artery disease) Clotting disorder Bleeding disorder Social History Smoking and tobacco status: former smoker Quit status (tobacco): has quit using tobacco Year quit tobacco: 2020 - Hx of 1PPD x 40 Second hand smoke exposure: No Smoking risk assessment/counseling performed?: Yes Alcohol intake: former Lives independently: Yes Household members: children Housing: House Marital status: / Current occupational status: employed Pets and animals: Yes History of recent travel: No Current gender identity: Female Special arlene needs: No Additional social history: Has used THC in the past but denies currently Physical Exam Narrative: EXAM NARRATIVE: GENERAL/CONSTITUTIONAL -mildly ill-appearing. Eyes -no scleral icterus, no conjunctival injection ENMT - Atraumatic external nose and ears. NECK - supple. trachea midline CARDIOVASCULAR - regular rate and rhythm. Normal peripheral perfusion RESPIRATORY -diminished to auscultation bilaterally. Coarse. Mild increased work of breathing ABDOMEN/GI - Nontender/Nondistended. MSK - Extremities without obvious deformity or tenderness to palpation SKIN - Warm, Dry NEURO - alert and appropriately oriented. Moves all extremities equally. Course ED course: - Patient was seen and evaluated by me at bedside - Patient placed on cardiac monitors, IV access obtained - Initial evaluation notable for exam as above -RT/symptom treatments ordered - Labs notable for no leukocytosis. Mild hemoconcentration. Thrombocytopenia of unclear etiology without evidence of hemorrhage on exam. ABG with mild decreased PO2. Metabolic panel with mild evidence of dehydration. Procalcitonin is elevated with elevated CRP. - Imaging notable for unimpressive chest x-ray given degree of elevation in procalcitonin raising concern for additional sources of infection, as such, CT is warranted. CT notable for pneumonia. - Upon serial reexamination after treatment the patient was improved - Based on patient history, evaluation, labs, and imaging as interpreted the most likely cause of the patient's condition is pneumonia with COPD exacerbation - The results of ED evaluation were discussed with the patient including prescriptions and/or symptomatic cares (if applicable) including appropriate and responsible use, followup plan, and return precautions. The patient verbalized understanding and felt safe for discharge. - Patient discharged in satisfactory condition. Vital Signs: Vital signs: Vital Signs Temperature 98.4 F 10/18/21 23:02 Pulse Rate 92 10/18/21 23:02 Respiratory Rate 18 10/18/21 23:02 Blood Pressure 141/99 10/18/21 23:02 Pulse Oximetry 90 10/18/21 23:02 MDM - SOB/Dyspnea Medical Records: Attestation: I reviewed the patient's medical records. Lab Data: Attestation: I reviewed the patient's lab results. Labs: Lab Results 10/18/21 10/18/21 10/18/21 15:11 15:11 15:11 WBC 8.1 10^3/uL 10^3/ uL (4.0-10.0) RBC 4.75 10^6/uL 10^6 /uL (4.1-5.3) Hgb 15.7 g/dL H g/dL (11.5-15.3) Hct 46.6 % % (37.0-47.0) MCV 98.1 fl fl (81-99) MCH 33.1 pg pg (28.0-34.0) MCHC 33.7 g/dL g/dL (30.0-36.0) RDW 13.5 % % (12.1-15.1) Plt Count 108 10^3/cmm L 10 ^3/cmm (130-400) MPV 9.7 fL fL (7.4-10.4) Neut % (Auto) 76.7 % % Lymph % (Auto) 16.1 % % [place] % (Auto) 6.7 % % Eos % (Auto) 0.1 % % Baso % (Auto) 0.2 % % Neut # (Auto) 6.19 10^3/uL 10^3 /uL (1.8-7.7) Lymph # (Auto) 1.3 10^3/uL 10^3/ uL (0.8-4.8) [place] # (Auto) 0.5 10^3/uL 10^3/ uL (0.2-0.9) Eos # (Auto) 0.0 10^3/uL 10^3/ uL (0.0-0.8) Baso # (Auto) 0.0 10^3/uL 10^3/ uL (0.0-0.1) Nucleated RBC % (a uto) 0 % % Nucleated RBCs # 0.0 /100WBC /100W BC Specimen Type Sample Site ABG pH ABG pCO2 ABG pO2 ABG HCO3 ABG Base Excess Donald Test Hematocrit O2 Delivery Device Outreach Librarian ID Sodium 139 mmol/L mmol/L (136-145) Potassium 3.5 mmol/L mmol/L (3.5-5.1) Chloride 100 mmol/L mmol/L (98-107) Carbon Dioxide 23 mmol/L mmol/L (22-29) Anion Gap 19.5 H (5-19) BUN 9 mg/dL mg/dL (6-20) Creatinine 0.5 mg/dL mg/dL (0.5-0.9) GFR Calculation 127.2 mL/min mL/m in (90-130) Glucose 98 mg/dL mg/dL (65-115) Calculated Osmolal ity 287 mOsm/kg mOsm/ kg (285-295) Calcium 8.1 mg/dL L mg/dL (8.5-10.5) Total Bilirubin 0.5 mg/dL mg/dL (0.15-1.2) AST 19 U/L U/L (0-32) ALT 14 U/L U/L (0-33) Alkaline Phosphata se 106 IU/L H IU/L (35-105) Troponin T Baselin e 8 ng/L ng/L (0-10) Troponin T 120 Min lizet Delta Troponin T Troponin T Hi Sens 6Hr Troponin T Hi Sens 6Hr Delta C-Reactive Protein 49.4 mg/L H mg/L (0.0-4.9) NT-Pro-B Natriuret Pep 182 pg/mL H pg/mL (0-125) Total Protein 6.9 g/dL g/dL (6.6-8.7) Albumin 3.8 g/dL g/dL (3.5-5.2) Globulin 3.1 g/dL g/dL (1.3-4.6) Procalcitonin 34.73 ng/mL H ng/ mL (0-0.5) Urine Color Urine Appearance Urine pH Ur Specific Gravit y Urine Protein Urine Glucose (UA) Urine Ketones Urine Blood Urine Nitrate Urine Bilirubin Urine Urobilinogen Ur Leukocyte Shanika ase SARS-CoV-2 Ag (Rap id) 10/18/21 10/18/21 10/18/21 15:11 16:15 17:30 WBC RBC Hgb Hct MCV MCH MCHC RDW Plt Count MPV Neut % (Auto) Lymph % (Auto) [place] % (Auto) Eos % (Auto) Baso % (Auto) Neut # (Auto) Lymph # (Auto) [place] # (Auto) Eos # (Auto) Baso # (Auto) Nucleated RBC % (a uto) Nucleated RBCs # Specimen Type Arterial Sample Site Brachial, right ABG pH 7.44 (7.35-7.45) ABG pCO2 35.3 mmHg mmHg (35-45) ABG pO2 53.6 mmHg L mmHg (80.0-100.0) ABG HCO3 24.0 mmol/L mmol/ L (22-26) ABG Base Excess 0.3 mmol/L mmol/L (-2.0-2.0) Donald Test N/a Hematocrit 44.8 % % (37-47) O2 Delivery Device Room air Outreach Librarian ID Gd Sodium Potassium Chloride Carbon Dioxide Anion Gap BUN Creatinine GFR Calculation Glucose Calculated Osmolal ity Calcium Total Bilirubin AST ALT Alkaline Phosphata se Troponin T Baselin e Troponin T 120 Min [place] 8.24 ng/L ng/L (0-10) Delta Troponin T 0.24 ABS# ABS# (0-10) Troponin T Hi Sens 6Hr Troponin T Hi Sens 6Hr Delta C-Reactive Protein NT-Pro-B Natriuret Pep Total Protein Albumin Globulin Procalcitonin Urine Color Urine Appearance Urine pH Ur Specific Gravit y Urine Protein Urine Glucose (UA) Urine Ketones Urine Blood Urine Nitrate Urine Bilirubin Urine Urobilinogen Ur Leukocyte Shanika ase SARS-CoV-2 Ag (Rap id) Negative (Negative) 10/18/21 10/18/21 19:00 21:35 WBC RBC Hgb Hct MCV MCH MCHC RDW Plt Count MPV Neut % (Auto) Lymph % (Auto) [place] % (Auto) Eos % (Auto) Baso % (Auto) Neut # (Auto) Lymph # (Auto) [place] # (Auto) Eos # (Auto) Baso # (Auto) Nucleated RBC % (a uto) Nucleated RBCs # Specimen Type Sample Site ABG pH ABG pCO2 ABG pO2 ABG HCO3 ABG Base Excess Donald Test Hematocrit O2 Delivery Device Outreach Librarian ID Sodium Potassium Chloride Carbon Dioxide Anion Gap BUN Creatinine GFR Calculation Glucose Calculated Osmolal ity Calcium Total Bilirubin AST ALT Alkaline Phosphata se Troponin T Baselin e Troponin T 120 Min [place] Delta Troponin T Troponin T Hi Sens 6Hr 8.31 ng/L ng/L (0-10) Troponin T Hi Sens 6Hr Delta 0.31 ng/L ng/L (0-12) C-Reactive Protein NT-Pro-B Natriuret Pep Total Protein Albumin Globulin Procalcitonin Urine Color Yellow (Yellow) Urine Appearance Clear (CLEAR) Urine pH 7 (5-7) Ur Specific Gravit y 1.000 L (1.005-1.030) Urine Protein Neg (Negative) Urine Glucose (UA) Norm (Normal) Urine Ketones 2+ H (Negative) Urine Blood Neg (Negative) Urine Nitrate Negative (Negative) Urine Bilirubin 1+ H (Negative) Urine Urobilinogen 8 mg/dL H mg/dL (Negative) Ur Leukocyte Shanika ase Negative (Negative) SARS-CoV-2 Ag (Rap id) EKG Data^: EKG 1: Attestation: I personally reviewed and interpreted this EKG as follows: EKG Interpretation Date: 10/18/21 EKG interpretation time: 15:20 Interpretation: Twelve-lead EKG shows a regular rhythm at a rate of 88. NM interval 160, QRS duration 84, QTc 362. Normal axis. Interpretation: Sinus rhythm. Nonspecific ST segment abnormalities peer EKG 2: Attestation: I personally reviewed and interpreted this EKG as follows: EKG Interpretation Date: 10/18/21 EKG interpretation time: 21:27 Interpretation: Twelve-lead EKG shows a regular rhythm at a rate of 79. NM interval 172, QRS duration 96, QTc 390. Normal axis. Interpretation: Sinus rhythm. Nonspecific ST segment abnormalities EKG 3: Attestation: I personally reviewed and interpreted this EKG as follows: EKG Interpretation Date: 10/18/21 EKG interpretation time: 21:00 Interpretation: Twelve-lead EKG shows a regular rhythm at a rate of 79. NM interval 166, QRS duration 92, QTc 388. Normal axis. Interpretation: Sinus rhythm. Nonspecific ST segment abnormalities. Discharge Plan Discharge Patient Disposition: Home Clinical Impression: Community acquired pneumonia, COPD (chronic obstructive pulmonary disease) Condition: Stable Prescriptions: New Augmentin 875-125 mg tablet 1 tab PO BID Qty: 14 RF: 0 No Action aspirin [Adult Low Dose Aspirin] 81 mg tablet,delayed release (DR/EC) 81 mg PO DAILY RF: 0 Hold Instructions: Resume on 04/02/20. Resume when off full strength aspirin ipratropium-albuterol 0.5 mg-3 mg(2.5 mg base)/3 mL solution for nebulization 3 ml inhalation QID PRN (Reason: sob) RF: 0 lisinopril 20 mg tablet 20 mg PO DAILY RF: 0 amlodipine 5 mg tablet 5 mg PO DAILY RF: 0 multivitamin [Multiple Vitamins] Tablet 1 tab PO DAILY RF: 0 albuterol sulfate 90 mcg/actuation HFA aerosol inhaler 1 inh INHALATION Q6H PRN (Reason: shortness of breath or wheezing) Qty: 6.7 RF: 1 celecoxib [Celebrex] 100 mg capsule 100 mg PO BID Qty: 20 RF: 0 Eliquis 5 mg tablet 2.5 mg PO BID RF: 0 Discharge Orders: Discharge ED (Routine); Ordered 10/18/21 Ordered By: Fito Moreau Other Ambulatory Orders: DME: Oxygen (Order) Location: None Selected Ordered By: Fito Moreau Referrals: Mary Carmen Salazar FNP [Primary Care Provider] - Discharge Diet: Usual diet Discharge Activity: Resume usual activity Patient Instructions: Using Oxygen at Home (ED), COPD (Chronic Obstructive Pulmonary Disease) (ED), Bacterial Pneumonia (ED) Activity Restrictions/Additional Instructions: Thank you for visiting the emergency department. You were seen and evaluated for cough and generalized symptoms. You are found to have a pneumonia which I believe is also flaring your COPD. You will be given prescriptions for antibiotics and steroids. Return the emergency department for worsening symptoms or anything else that you are concerned about and feel needs emergency department evaluation. 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
--- NOTE | 2021-10-18 14:52 | XRR_ITS ---
PROCEDURE INFORMATION: Exam: XR Chest Exam date and time: 10/18/2021 2:52 PM Age: 55 years old Clinical indication: Cough and shortness of breath; Additional info: Cough, SOB TECHNIQUE: Imaging protocol: XR of the chest. Views: 1 view. COMPARISON: CR (CHEST, ) 06/08/2020 11:26 AM FINDINGS: Lungs: Hyperinflated lungs. No consolidation. Pleural spaces: Unremarkable. No pleural effusion. No pneumothorax. Heart/Mediastinum: Mild cardiomegaly. Prominent epicardial fat pad, similar to prior study. Bones/joints: Unremarkable. XR/XR chest 1V portable [id number] IMPRESSION: Mild cardiomegaly. No consolidation.
--- NOTE | 2021-10-18 14:52 | ECG_ITS ---
[facility] Test Date: 2021-10-18 Pat Name: Amber Ventura Department: Room: Gender: Female Bi Technical Lead: : 1965 Requested By: Fito Moreau Order Number: [id number] Stefany MD: Cynthia Klein M.D. Measurements Intervals [place] Rate: 88 P: 69 [place]: 160 QRS: 35 QRSD: 84 T: 100 QT: 316 QTc: 384 Interpretive Statements SINUS RHYTHM MODERATE T-WAVE ABNORMALITY, CONSIDER LATERAL ISCHEMIA [-0.1+ mV T-WAVE IN I/aVL/V5/V6] Compared to ECG 06/02/2020 15:29:41 T-wave abnormality now present Possible ischemia now present Electronically Signed On 10-19-2021 15:33:38 TUGGER OPERATOR by Cynthia Klein M.D. [id number]
[2021-10-18 15:21] LABS: Basophils % 0.2 %; Eosinophils % 0.1 %; Hematocrit 46.6 % (37.0-47.0); Hemoglobin 15.7 g/dL (11.5-15.3); Lymphocytes # 1.3 10^3/uL (0.8-4.8); Lymphocytes % 16.1 %; Mean Corpuscular HGB Conc 33.7 g/dL (30.0-36.0); Mean Corpuscular Hemoglobin 33.1 pg (28.0-34.0); Mean Corpuscular Volume 98.1 fl (81-99); Mean Platelet Volume 9.7 fL (7.4-10.4); Monocytes # 0.5 10^3/uL (0.2-0.9); Monocytes % 6.7 %; Neutrophils # 6.19 10^3/uL (1.8-7.7); Neutrophils % 76.7 %; Nucleated Red Blood Cells % 0 %; Platelet Count 108 10^3/cmm (130-400); Red Blood Count 4.75 10^6/uL (4.1-5.3); Red Cell Distribution Width 13.5 % (12.1-15.1); White Blood Count 8.1 10^3/uL (4.0-10.0)
[2021-10-18 15:38] LABS: SARS Covid-2 Antigen Negative (Negative)
[2021-10-18 15:40] LABS: Troponin(5th) Baseline 8 ng/L (0-10)
[2021-10-18 15:45] LABS: NT Pro B Type Natriuretic Pept 182 pg/mL (0-125); Procalcitonin 34.73 ng/mL (0-0.5)
[2021-10-18] MEDS: sodium chloride 0.9% 500 ML IV (15:51)
[2021-10-18 15:56] LABS: Alanine Aminotransferase 14 U/L (0-33); Albumin Level 3.8 g/dL (3.5-5.2); Alkaline Phosphatase 106 IU/L (35-105); Aspartate Amino Transferase 19 U/L (0-32); Blood Urea Nitrogen 9 mg/dL (6-20); C Reactive Protein 49.4 mg/L (0.0-4.9); Calcium 8.1 mg/dL (8.5-10.5); Carbon Dioxide 23 mmol/L (22-29); Chloride 100 mmol/L (98-107); Globulin 3.1 g/dL (1.3-4.6); Glomerular Filtration Rate 127.2 mL/min (90-130); Glucose 98 mg/dL (65-115); Osmolality Calculated 287 mOsm/kg (285-295); Sodium 139 mmol/L (136-145); Total Bilirubin 0.5 mg/dL (0.15-1.2); Total Protein 6.9 g/dL (6.6-8.7)
[2021-10-18 15:57] LABS: Anion Gap 19.5 (5-19); Potassium 3.5 mmol/L (3.5-5.1)
[2021-10-18 16:33] LABS: ABG PCO2 35.3 mmHg (35-45); ABG PH Result 7.44 (7.35-7.45); Arterial Blood Gas Hematocrit 44.8 % (37-47); Base Excess ABG 0.3 mmol/L (-2.0-2.0); Blood Gas Operator Identificat GD; Blood Gas Sample Site Brachial, right; Blood Gas Sample Type Arterial; Oxygen Device ROOM AIR; PO2 ABG 53.6 mmHg (80.0-100.0)
[2021-10-18 18:10] LABS: Troponin 5 2HR 8.24 ng/L (0-10); Troponin 5 2HR Delta 0.24 ABS# (0-10)
--- NOTE | 2021-10-18 18:32 | CTR_ITS ---
PROCEDURE INFORMATION: Exam: CT Chest With Contrast; Diagnostic Exam date and time: 10/18/2021 6:32 PM Age: 55 years old Clinical indication: Nausea and vomiting; Cough and shortness of breath; Patient HX: SOB, n/v, fatigue; Additional info: SOB, malaise, poor po intake, n/v, pain ? source of infection TECHNIQUE: Imaging protocol: Diagnostic computed tomography of the chest with contrast. Total images: 493 Radiation optimization: All CT scans at this facility use at least one of these dose optimization techniques: automated exposure control; mA and/or kV adjustment per patient size (includes targeted exams where dose is matched to clinical indication); or iterative reconstruction. Contrast material: VISI 320; Contrast volume: 95 ml; Contrast route: INTRAVENOUS (IV); COMPARISON: CT angio chest PE protcl [id number] 06/02/2020 5:32 PM RADIATION DOSE METRICS: Total DLP (mGy-cm): 1966.34 FINDINGS: Lungs: Findings of mild tree in bud small airway bronchiolar disease/bronchiolitis posterior basal segment left lower lobe. Air trapping of COPD/chronic bronchitis/emphysema. Rare calcified granuloma of antecedent disease. Pleural spaces: No pneumothorax. No pleural effusion. Heart: Cardiac size within normal limits. No visible pericardial effusion. Mild coronary artery disease. Aorta: The thoracic aorta is nonaneurysmal. No visible intimal flap or dissection. Minimal arterial sclerotic disease. Lymph nodes: No findings raising suspicion for active mediastinal or hilar lymphadenopathy. Bones/joints: No visible acute osseous abnormality. Degenerative disease of the spine with spondylosis deformans. Scoliosis. Soft tissues: Obesity. Other findings: Respiratory motion artifact. PROCEDURE INFORMATION: Exam: CT Abdomen And Pelvis With Contrast Exam date and time: 10/18/2021 6:32 PM Age: 55 years old Clinical indication: Nausea and vomiting; Cough and shortness of breath; Patient HX: SOB, n/v, fatigue; Additional info: SOB, malaise, poor po intake, n/v, pain ? source of infection TECHNIQUE: Imaging protocol: Computed tomography of the abdomen and pelvis with contrast. Radiation optimization: All CT scans at this facility use at least one of these dose optimization techniques: automated exposure control; mA and/or kV adjustment per patient size (includes targeted exams where dose is matched to clinical indication); or iterative reconstruction. Contrast material: VISI 320; Contrast volume: 95 ml; Contrast route: INTRAVENOUS (IV); COMPARISON: CT angio chest PE protcl [id number] 06/02/2020 5:32 PM RADIATION DOSE METRICS: Total DLP (mGy-cm): 1966.34 FINDINGS: Liver: No visible hepatic mass or cystic structure. Gallbladder and bile ducts: Cholelithiasis. Pancreas: Pancreas is unremarkable. No visible pancreatic ductal ectasia. Spleen: Spleen unremarkable. Adrenal glands: Adrenal glands unremarkable. Kidneys and ureters: No hydronephrosis or perinephric fluid. No visible nephrolithiasis. Rare small simple renal cortical cysts bilaterally. No follow-up recommended. No visible renal mass. Stomach and bowel: Diverticulosis coli, primarily the sigmoid colon, without evidence for acute diverticulitis. Nonobstructive bowel pattern. No visible significant adynamic or reactive ileus. Duodenal diverticulum. Appendix: The appendix is visualized and appears noninflamed. Intraperitoneal space: No visible pneumoperitoneum or intraperitoneal ascites. Vasculature: Portal vein patent. The abdominal aorta is nonaneurysmal. Mild arterial sclerotic disease. Lymph nodes: Unremarkable. No pathologically enlarged lymph nodes. Urinary bladder: Urinary bladder grossly unremarkable. Reproductive: Unremarkable as visualized for age. Bones/joints: Right total hip prosthesis with extensive metal artifact limiting assessment of the pelvis. No visible acute osseous abnormality. Degenerative disease of the spine with spondylosis deformans. Advanced facet arthrosis. Advanced degenerative disc disease of the lumbosacral spine. Soft tissues: Obesity. Other findings: Motion artifact. CT/CT chest abd pel w con* IMPRESSION: 1. Findings of mild tree in bud small airway bronchiolar disease/bronchiolitis posterior basal segment left lower lobe. 2. Air trapping of COPD/chronic bronchitis/emphysema. IMPRESSION: 1. Currently no visible evidence for acute abdominal or pelvic pathologic process. 2. Cholelithiasis. 3. Diverticulosis coli without visible evidence for acute diverticulitis. COMMENTS: Consistent with the [employer]'s Incidental Findings Committee white paper (J Am Sandy Radiol 2018): Any incidental renal lesion less than 1 cm or classified as too small to characterize, or any incidental cystic renal lesion characterized as simple-appearing, is likely benign. No follow-up imaging is recommended for these lesions per consensus recommendations based on imaging criteria.
[2021-10-18] MEDS: iodixanol 320 mg/mL 100mL Btl IV (19:01)
[2021-10-18 19:08] LABS: Add Urine Microscopic? NO; Charge for UA Resulting for Rev
[2021-10-18 19:10] LABS: Bilirubin Urine 1+ (Negative); Blood Urine Neg (Negative); Glucose Urine UA Norm (Normal); Ketones Urine 2+ (Negative); Leukocyte Esterase Urine Negative (Negative); Nitrate Urine Negative (Negative); Protein Urine Neg (Negative); Urine Appearance Clear (CLEAR); Urine Color Yellow (Yellow); Urobilinogen Urine 8 mg/dL (Negative); pH Urine 7 (5-7)
--- NOTE | 2021-10-18 20:10 | PC.NURSE ---
ekg done on previous shift
[2021-10-18] MEDS: doxycycline 100 mg Tablet PO (20:16)
[2021-10-18] MEDS: amoxicillin-clav 875-125 mg Tablet 1 TAB PO (20:16)
[2021-10-18 20:19] VITALS: BP 137/104; PULSE 84; RESP 20; O2SAT 88
--- NOTE | 2021-10-18 20:19 | PC.NURSE ---
iv done on previous shift
[2021-10-18 20:52] VITALS: O2SAT 87
--- NOTE | 2021-10-18 20:52 | ECG_ITS ---
[facility] Test Date: 2021-10-18 Pat Name: Amber Ventura Department: Room: Gender: Female Muffler Installer: : 1965 Requested By: Fito Moreau Order Number: [id number] Stefany MD: Cynthia Klein M.D. Measurements Intervals [place] Rate: 79 P: 61 [place]: 166 QRS: 26 QRSD: 92 T: 134 QT: 353 QTc: 406 Interpretive Statements SINUS RHYTHM ST DEVIATION AND MODERATE T-WAVE ABNORMALITY, CONSIDER ANTEROLATERAL ISCHEMIA [-0.1+ mV T-WAVE IN V3-V6] Compared to ECG 10/18/2021 15:17:33 No significant changes Electronically Signed On 10-19-2021 16:55:28 INSTRUCTIONAL SUPPORT SPECIALIST by Cynthia Klein M.D. [id number]
[2021-10-18 22:01] LABS: Troponin 5 6HR 8.31 ng/L (0-10); Troponin 5 6HR Delta 0.31 ng/L (0-12)
[2021-10-18 23:02] VITALS: BP 141/99; PULSE 92; RESP 18; TEMP 36.9; O2SAT 90
== END 2021-10-18 23:13 | disposition home or self-care (01) ==
PROVIDERS: Emergency Provider Emergency Medicine; PCP Nurse Practitioner Family
DX: J44.0 Chronic obstructive pulmonary disease with (acute) lower respiratory infection (principal); J18.9 Pneumonia, unspecified organism; Z79.82 Long term (current) use of aspirin; Z79.01 Long term (current) use of anticoagulants; I10 Essential (primary) hypertension; Z87.891 Personal history of nicotine dependence; Z20.822 Contact with and (suspected) exposure to COVID-19
CPT/HCPCS: 36415; 36600; 71045; 71260; 74177; 80053; 81003; 82803; 83880; 84145; 84484; 85025; 86140; 87040; 87426; 93005; 96360; 99284; J7040; Q9967